=== PATIENT | female | born 1980 | race Caucasian/White ===

== ENCOUNTER 2018-03-14 17:19 | Inpatient (IN) | payer OTHER, MEDICARE ==
[~2018-03-14] VITALS: Ht 162.6 cm; Wt 90.3 kg
[~2018-03-14 17:19] MED LIST: AUGMENTIN 500-1 EACH PO; CALCITRIOL0.25 MC1 PO; CALCITRIOL0.25 MCG PO; CALCITRIOL0.5 MCG PO; CEPHALEXIN250 M2 PO; CIPRO 250MG250 MG PO; CIPRO 500MG (E500 MG PO; COLCHICINE0.6 M2 PO; DICLOFENAC POTA50 M1 PO; FERROUS SULFAT325 M2 PO; IMODIUM2 MG PO; NEXIUM 40MG40 MG PO; NEXIUM40 M1 PO; ORAL ANALGESIC9 GM TP; PERCOCET 325 MG1 TA2 PO; PERCOCET 5-3251 EACH PO; PREDNISONE10 M2 PO; RENVELA800 M1; RENVELA800 M1 PO; RENVELA800 MG PO; SODIUM BICARBO325 M1; SODIUM BICARBO650 M1 PO; VOLTAREN100 GM TOP
--- NOTE | 2018-03-14 17:42 | ED GI/GU/ABDOMINAL COMPLAINT ---
See Addendum History of Present Illness General Chief Complaint: General Adult Stated Complaint: BODY ACHES/NAUSEA Source: patient, old records Exam Limitations: no limitations Allergies Coded Allergies: latex (PRECAUTIONARY INFORMED BY [facility] R/T PT HAVING SPINA BIFADA 03/14/18) Reconcile Medications Calcitriol 0.25 MCG CAPSULE 1 CAP PO DAILY KIDNEYS (Reported) Cephalexin 250 MG CAPSULE 250 MG PO Q8 infection Diclofenac Potassium 50 MG TABLET 1 TAB PO TID PRN PAIN Sevelamer Carbonate (Renvela) 800 MG TABLET 3 TAB PO TID KIDNEYS (Reported) Sodium Bicarbonate 650 MG TABLET 2 TAB PO TID KIDNEYS (Reported) Triage Note: PT TO ED FOR BILATERAL "KIDNEY PAIN" HX OF CHRONIC KIDNEY FAILURE. REPORTS BODY ACHES ALSO, DENIES UTI S/S. Triage Nurses Notes Reviewed? yes ? n Is pt currently ? No Onset: Gradual Duration: hour(s): Timing: single episode today Quality/Severity: moderate Location: left flank Radiation: no radiation HPI: 37yo female with hx of CKD, spina bifida, s/p colostomy and urostomy presents to ED complaining of left sided "flank" pain that started this afternoon. Pt reports that the pain is a dull ache localized to the left upper lateral flank that does not radiate. Pain is constant and does change in intesity with movement. Admits to feeling fatigued, but denies any fevers, chills, chest pain, nausea, shortness of breath. Pt noted that 5 days ago she had an acute episode of nausea and vomiting after eating leftovers. Since then, she has had decreased appetite and fluid intake. She is tolerating PO today however diminished intake compared to her baseline. Pt has urostomy bag and denies any abnormal findings including hematuria, cloudiness,, she states today she has produced urine however slighly less than her usual ammount. Pt denies any recent travel or surgeries. (Luz BURTON,Vee Sepulveda) Vital Signs & Intake/Output Vital Signs & Intake/Output Vital Signs Date Time Temp Pulse Resp B/P B/P Pulse O2 O2 Flow FiO2 Mean Ox Delivery Rate 03/14 1848 119/53 03/14 1723 97.8 95 15 96 Room Air Room Air (Claudette SAGE,Abrahan Hartman) Past History Travel History Traveled to [place] past 21 day No Medical History Any Pertinent Medical History? 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 Refer elsewhere in this and other documents for additional details. There is no other information in these categories that I am aware of and no additional information was provided by the patient on consultation evaluation today which is pertinent to the patient's current orthopaedic consultation assessment, recommendations or care. History of MRSA: Yes History of VRE: No History of CDIFF: No Surgical History Surgical History: RIGHT BELOW KNEE AMPUTATION urostomy, colostomy, Psychosocial History Who do you live with Mother Services at Home None What is your primary language Armenian Tobacco Use: Quit >30 days ago ETOH Use: denies use Illicit Drug Use: denies illicit drug use Family History Family History, If Any: FATHER FH: COPD (chronic obstructive pulmonary disease) FH: stroke Hx Contributory? No (Vee Caceres) Review of Systems Review of Systems Constitutional: Reports: see HPI. EENTM: Reports: no symptoms. Respiratory: Reports: no symptoms. Cardiovascular: Reports: no symptoms. GI: Reports: see HPI. Genitourinary: Reports: see HPI. Musculoskeletal: Reports: no symptoms. Skin: Reports: no symptoms. Neurological/Psychological: Reports: no symptoms. Hematologic/Endocrine: Reports: no symptoms. Immunologic/Allergic: Reports: no symptoms. All Other Systems: Reviewed and Negative (Vee Caceres) Physical Exam Physical Exam General Appearance: well developed/nourished, no apparent distress, alert, awake , obese Head: atraumatic, normal appearance Eyes: Bilateral: normal appearance. Ears, Nose, Throat, Mouth: hearing grossly normal Neck: normal inspection, supple, full range of motion Respiratory: normal breath sounds, chest non-tender, no respiratory distress, lungs clear Cardiovascular: regular rate/rhythm Gastrointestinal: soft, non-tender, urostomy with bag in lower abdomen, colostomy in RLQ, stoma periumbilical Back: normal inspection, normal range of motion, no CVA tenderness, erythematous rash to lower back Neurologic/Psych: no motor/sensory deficits, awake, alert, oriented x 3, normal mood/affect Skin: intact, normal color, warm/dry Core Measures ACS in differential dx? No Sepsis Present: No Sepsis Focused Exam Completed? No (Luz BURTON,Vee eSpulveda) Progress Differential Diagnosis: bowel obstruction, diverticulitis, gastritis, hernia, inflamm bowel dis, kidney stone, UTI/pyelo, acute on chronic renal failure Plan of Care: Orders Procedure Date/time Status Heart Healthy Diet 03/15 B Active Patient Data 03/14 191 Active ED Holding Orders 03/14 1902 Active Admit to inpatient 03/14 190 Active Vital Signs 03/14 190 Active Code Status 03/14 190 Active XRY-PORTABLE CHEST XRAY 03/14 185 Active Add-on Test (ER Only) 03/14 1858 Active ARTERIAL BLOOD GAS (GEN) 03/14 185 Active Add-on Test (ER Only) 03/14 1836 Active EKG 03/14 1815 Active LACTIC ACID 03/14 1755 Active HUMAN BETA HCG SCREEN 03/14 1745 Complete URINE 03/14 1728 Active URINALYSIS 03/14 1728 Active COMPREHENSIVE METABOLIC PANEL 03/14 1728 Complete CBC WITHOUT DIFFERENTIAL 03/[address] ABD & PELVIS W/O IV CONTRAS 03/14 1728 Active Current Medications Sig/Rolo Start time Last Medication Dose Stop Time Status Admin Sodium Bicarbonate 150 MEQ CONTINOUS INFUSION 03/14 1930 UNir (Sodium Bicarbonate 8.4%) Dextrose/Water 1,000 ML (D5W 1000) Sodium Chloride 1,000 ML ONCE ONE 03/14 1845 CAN (Normal Saline 0.9%) 03/15 0244 Laboratory Tests 03/14/18 1745: Anion Gap 19 H, Estimated GFR 4 L, BUN/Creatinine Ratio 7.0, Glucose 96, Calcium 6.5 L, Total Bilirubin 0.4, AST 9 L, ALT 17, Alkaline Phosphatase 176 H, Total Protein 7.5, Albumin 3.5, Globulin 4.0, Albumin/Globulin Ratio 0.9 L, Total Beta HCG NEGATIVE, CBC w Diff NO MAN DIFF REQ, RBC 4.77, MCV 74.2 L, MCH 24.6 L, MCHC 33.1, RDW 16.0 H, MPV 7.3 L, Gran % 68.2, Lymphocytes % 20.7, Monocytes % 8.4, Eosinophils % 2.2, Basophils % 0.5, Absolute Granulocytes 8.6 H, Absolute Lymphocytes 2.6, Absolute Monocytes 1.1 H, Absolute Eosinophils 0.3 , Absolute Basophils 0.1 Patient's labs show creatinine of 11.9, GFR 4. Significant kidney decline compared to her baseline functioning. She also has leukocytosis of 12. Carbon dioxide is 8, ABG pending. CT imaging is pending. This patient requires hospital admission for acute on chronic renal failure asked him is 3.2. EKG is stable. Patient is in no acute distress, she appears comfortable on exam. Her vital signs are stable. Discussed findings with Dr. Wilkins who believes General medicine admission is appropriate. I paged nephrology however am awaiting their return page. Case management recommend full admission. Discussed this patient with Dr. Greenberg, hospitalist, regarding general medicine admission. Initial ED EKG: SINUS RHYTHM @81BPM, NONSPECIFIC ST CHANGES (Luz BURTON,Vee Sepulveda) Departure Departure Disposition: STILL A PATIENT Condition: Stable Clinical Impression Primary Impression: Flank pain Referrals: Jordan Vidales DO (PCP/Family) Additional Instructions: Follow up with your specialist regarding your flank pain. Return with worsening symptoms or concerns. Please note that there might be incidental findings in your evaluation that are unrelated to the current emergency department visit. Please notify your primary care doctor about this emergency department visit in order to obtain and review all of the testing performed so that these incidental findings can be monitored as needed. If you had an x-ray performed, please understand that some fractures may not be seen on the initial set of x-rays. If your symptoms persist you might need a repeat set of x-rays to check for such a fracture. If you had a laceration evaluated, please understand that foreign bodies such as glass or wood may not be visible to the naked eye or on plain x-rays. If the wound becomes red, swollen, increasingly more painful or if there is any drainage from the wound, please have it reevaluated by a physician for the possibility of a retained foreign body. If you're unable to follow up as outlined in the discharge instructions please return to the emergency department. Thank you for choosing the [facility] Emergency Department for your care. It was a pleasure to serve you today. Departure Forms: Customer Survey General Discharge Information Admission Note Spoke With: Vance Greenberg MD Documentation of Exam: Documentation of any treatments & extenuating circumstances including Concerns Regarding Discharge (functional status, medication knowledge or non-compliance, living conditions, etc.) that warrant an admission rather than observation: [ Acute renal failure with electrolyte abnormalities requiring nephrology consult, electrolyte replacement, possible IV fluids, possible dialysis, repeat labs, premature discharge medically unsafe] (Luz BURTON,Vee Sepulveda) PA/UNDERGROUND MINE MACHINERY MECHANIC Co-Sign Statement Statement: ED Attending supervision documentation- [X] I saw and evaluated the patient. I have also reviewed all the pertinent lab results and diagnostic results. I agree with the findings and the plan of care as documented in the PA's/UNDERGROUND MINE MACHINERY MECHANIC's documentation. [X] I have reviewed the ED Record and agree with the PA's/UNDERGROUND MINE MACHINERY MECHANIC's documentation. [] Additions or exceptions (if any) to the PAs/UNDERGROUND MINE MACHINERY MECHANIC's note and plan are summarized below: [Patient to be admitted for acute on chronic kidney failure, patient will need IV fluids, renal consultation, potential dialysis. Her potassium is slightly low but her CO2 is exceptionally low and she is getting acidotic.] (Claudette SAGE,Abrahan Hartman) Critical Care Note Critical Care Note Critical Care Time: 30-74 min (Luz BURTON,Vee Sepulveda)
[2018-03-14 17:58] LABS: ABSOLUTE BASOPHIL COUNT 0.1 /CUMM (0.0-0.2); ABSOLUTE EOSINOPHIL COUNT 0.3 /CUMM (0.0-0.7); ABSOLUTE GRANULOCYTE CT 8.6 /CUMM (1.4-6.5); ABSOLUTE LYMPH COUNT 2.6 /CUMM (1.2-3.4); ABSOLUTE MONOCYTE COUNT 1.1 /CUMM (0.10-0.60); BASOPHIL % 0.5 % (0.0-2.0); EOSINOPHIL % 2.2 % (0-5); GRANULOCYTE % 68.2 % (42.2-75.2); HEMATOCRIT 35.4 % (37-47); MEAN CORPUSCULAR HGB 24.6 PG (27.0-31.0); MEAN CORPUSCULAR HGB CONC 33.1 G/DL (33.0-37.0); MEAN CORPUSCULAR VOLUME 74.2 FL (81.0-99.0); MEAN PLATELET VOLUME 7.3 FL (7.4-10.4); PLATELET COUNT 312 /CUMM (130-400); RED BLOOD CELL CT 4.77 /CUMM (4.20-5.40); WHITE BLOOD CELL COUNT 12.5 /CUMM (4.8-10.8)
[2018-03-14] MEDS ORDERED: SENSIPAR60 M1 PO (19:26)
--- NOTE | 2018-03-14 19:28 | RADIOLOGY REPORT ---
EXAMINATION: XR PORTABLE CHEST CLINICAL INFORMATION: Acute kidney injury. Rule out fluid overload. COMPARISON: Chest x-ray 04/08/2016. TECHNIQUE: Portable frontal view of the chest was obtained. FINDINGS: Ventricular shunt catheter versus right IJ venous line projecting over the right neck, unchanged when compared to multiple prior examinations. Stable enlargement of the right heart border. Symmetric lung inflation. Central vascular congestion without overt edema. No pleural effusion and no pneumothorax. No acute osseous findings. IMPRESSION: Central vascular congestion without overt edema. No focal pneumonia. Stable enlargement of the right heart border. Ventricular shunt catheter versus right IJ venous line projecting over the right neck, unchanged when compared to multiple prior examinations.
--- NOTE | 2018-03-14 19:30 | CT SCAN REPORT ---
EXAMINATION: CT ABDOMEN AND PELVIS WITHOUT CONTRAST CLINICAL INFORMATION: Right flank and back pain. Presumptive diagnosis: Kidney stones, pyelonephritis COMPARISON: Ultrasound dated 12/08/[address] dated 11/22/2015 TECHNIQUE: Multidetector volumetric imaging was performed from the superior aspect of the liver through the pubic symphysis. Sagittal and coronal reformatted images were obtained on the technologist's workstation. DLP: 1204 mGy-cm FINDINGS: LUNG BASES: Mild dependent atelectasis vs. pleural parenchymal scarring. No consolidation. LIVER, GALLBLADDER, AND BILIARY TREE: Relative hypoattenuation of the hepatic parenchyma is consistent with steatosis. No focal hepatic lesions are identified. No biliary duct dilatation. A dense 1.5 cm calcified gallstone is present within the gallbladder in addition to a smaller 3 mm calculus in the gallbladder neck. No evidence of cholecystitis. PANCREAS: Unremarkable. SPLEEN: Unremarkable. ADRENAL GLANDS: Unremarkable. KIDNEYS AND URETERS: As seen on prior studies, the right kidney is markedly atrophic. A few nonobstructing calculi are present in the calyces. A linear band of stones in the right distal ureter measures 4 cm in length and is similar in appearance to the prior study. The surrounding ureter is thickened. No right-sided hydroureter. The termination of the right distal ureter at the bladder is not well seen. A large staghorn calculus is present in the lower pole of the left kidney, increased in size from prior. Multiple additional nonobstructing stones are present in the left kidney. No significant hydronephrosis or hydroureter. As seen on image 55/161 of series 601, there is a 1.6 cm calculus in the left distal ureter. This terminates at the urostomy. BLADDER: Not seen GASTROINTESTINAL TRACT: Nondilated bowel gas pattern. A and colostomy is present within the right mid abdominal wall. The distal colon is likely absent. A Bright's pouch is not seen. There is a Joyce's hernia in the ventral abdominal wall in the infraumbilical region at the midline (image 64/88 of series 2). No significant surrounding bowel inflammation. This Joyce's hernia involves a segment of small bowel. This was likely present on the prior study from 11/22/2015. No intraperitoneal free air or free fluid ABDOMINAL WALL: As mentioned above, a urostomy is present in the left lower quadrant and a colostomy is present in the upper quadrant. There is a small fat-containing umbilical hernia. A Joyce's hernia is present in the anterior abdominal wall in the pelvis just left of midline, lateral to surgical sutures. There is absence of the subcutaneous fat over the anterior abdominal wall in the pelvic region inferiorly, potentially due to prior panniculectomy. LYMPH NODES: There are a few prominent retroperitoneal nodes at the level of the renal vasculature including a 1.2 cm portacaval node (short axis) and a 0.9 cm left pararenal/mesenteric node (image 49/88 of series 2). VASCULAR: Unremarkable. PELVIC VISCERA: The uterus, ovaries, and vagina appear surgically absent. Extensive chronic postsurgical changes are evident in the perineal region with absence of the anus and urogenital structures. OSSEOUS STRUCTURES: There is marked right convex scoliosis in the lumbar spine with distortion of the normal pelvic anatomy. 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 Much of the pubic bones and portions of the ischia are absent. No acute fractures are identified. There is a decubitus ulcer overlying the posterior aspect of the right acetabulum extending to the depth of bone. No definitive findings of osteomyelitis, though MRI would be more specific. No fluid collections are identified. The appearance is similar to the prior study from 11/22/2015. IMPRESSION: 1. Large staghorn calculus in the left kidney with multiple additional nonobstructing left renal calculi, and a 1.6 cm calculus in the left distal ureter proximal to the urostomy. No significant hydronephrosis or hydroureter. 2. Nonobstructing right nephrolithiasis with a 4 cm band of calculi in the right distal ureter, similar to prior. The right kidney is markedly atrophic without hydronephrosis. 3. Cholelithiasis without evidence of cholecystitis. 4. A Joyce's hernia in the infraumbilical anterior abdominal wall involving a segment of small bowel, likely also present on the prior study in 2016. No evidence of obstruction or surrounding inflammation. 5. Decubitus ulcer posterior to the right acetabulum/ischium which extends to the depth of bone. This appearance is similar to 2016. No evidence of abscess or convincing evidence of osteomyelitis. 6. Hepatic steatosis.
--- NOTE | 2018-03-14 19:55 | History & Physical ---
General Information and HPI Allergies/Medications Allergies: Coded Allergies: latex (PRECAUTIONARY INFORMED BY [place] R/T PT HAVING SPINA BIFADA 03/14/18) Home Med list Cinacalcet HCl (Sensipar) 60 MG TABLET 1 TAB PO DAILY KIDNEYS (Reported) Sevelamer Carbonate (Renvela) 800 MG TABLET 3 TAB PO TID KIDNEYS (Reported) Sodium Bicarbonate 650 MG TABLET 2 TAB PO TID KIDNEYS (Reported) Past History Travel History Traveled to [place] past 21 day No Medical History Neurological: Spina bifida with a COMMISSIONS ANALYST shunt EENT: NONE Cardiovascular: NONE Respiratory: NONE Gastrointestinal: ILLEOSTOMY/COLOSTOMY BAG Hepatic: cholelithiasis Renal: chronic kidney disease, nephrolithiasis, UROSTOMY Musculoskeletal: club foot Psychiatric: NONE Endocrine: hyperparathyroidism (secondary) Blood Disorders: NONE Cancer(s): NONE 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 Refer elsewhere in this and other documents for additional details. There is no other information in these categories that I am aware of and no additional information was provided by the patient on consultation evaluation today which is pertinent to the patient's current orthopaedic consultation assessment, recommendations or care. History of MRSA: Yes History of VRE: No History of CDIFF: No Surgical History Surgical History: RIGHT BELOW KNEE AMPUTATION urostomy, colostomy, Past Family/Social History Family History Relations & Conditions if any FATHER FH: COPD (chronic obstructive pulmonary disease) FH: stroke Psychosocial History Who Do You Live With? parent Services at Home: None Primary Language: German ETOH Use: denies use Illicit Drug Use: denies illicit drug use Functional Ability ADLs Independent: dressing, eating, toileting, bathing. Ambulation: electric wheelchair IADLs Independent: shopping, housework, finances, food prep, telephone, transportation , medication admin. Core Measures/Misc (04/09) Sepsis (View protocol) If YES complete Sepsis Event Note If YES complete Sepsis Event Note
--- NOTE | 2018-03-14 20:14 | History & Physical ---
Jim Walsh 03/14/18 2011: General Information and HPI MD Statement: I have seen and personally examined OLIVIA LOCK and documented this H&P. The patient is a 37 year old F who presented with a patient stated chief complaint of FLANK PAIN. Source of Information: patient, old records Exam Limitations: no limitations History of Present Illness: 37 year old female past medical hx of spina bifida, status post colostomy and urostomy, and CKD presents with flu-like symptoms with body aches, left "flank" pain, and loss of appetite for the past five days. The pain started with just the body aches, which were worse than her usual arthralgias, and mild loss of appetite. Today, she started to experience the left-sided flank pain, and presented to the ED. The pain in constant, 5/10 dull ache that does not radiate. Denies fevers, chills, SOB, chest pain, nausea, or urostomy and colostomy changes except possible decreased volume. In the ED, the patient was found to have a creatinine of 11.9 up from her baseline of ~4, calcium of 6.5, and a potassium of 3.2, as well as a leukocytosis of 12.5. Her EKG showed normal sinus rhythm. A CT of her abdomen/ pelvis showed a large staghorn calculus on the left, and a band of nonobstructing calculi on the right. The patient is being admitted to general medicine for management of her electrolyte imbalances due to acute on chronic renal disease. Allergies/Medications Allergies: Coded Allergies: latex (PRECAUTIONARY INFORMED BY [place] R/T PT HAVING SUMIT MOURA 03/14/18) Home Med list Cinacalcet HCl (Sensipar) 60 MG TABLET 1 TAB PO DAILY KIDNEYS (Reported) Sevelamer Carbonate (Renvela) 800 MG TABLET 3 TAB PO TID KIDNEYS (Reported) Sodium Bicarbonate 650 MG TABLET 2 TAB PO TID KIDNEYS (Reported) Compliance With Home Meds: GOOD Past History Travel History Traveled to [place] past 21 day No Medical History Neurological: Spina bifida with a ORGAN ASSEMBLER shunt EENT: NONE Cardiovascular: NONE Respiratory: NONE Gastrointestinal: ILLEOSTOMY/COLOSTOMY BAG Hepatic: cholelithiasis Renal: chronic kidney disease, nephrolithiasis, UROSTOMY Musculoskeletal: club foot Psychiatric: NONE Endocrine: hyperparathyroidism (secondary) Blood Disorders: NONE Cancer(s): NONE 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 Refer elsewhere in this and other documents for additional details. There is no other information in these categories that I am aware of and no additional information was provided by the patient on consultation evaluation today which is pertinent to the patient's current orthopaedic consultation assessment, recommendations or care. History of MRSA: Yes History of VRE: No History of CDIFF: No Surgical History Surgical History: RIGHT BELOW KNEE AMPUTATION urostomy, colostomy, Past Family/Social History Family History Relations & Conditions if any FATHER FH: COPD (chronic obstructive pulmonary disease) FH: stroke Psychosocial History Where do you live? Home Who Do You Live With? parent Services at Home: None Primary Language: Northern Irish Smoking Status: Former Smoker ETOH Use: denies use Illicit Drug Use: denies illicit drug use Functional Ability ADLs Independent: dressing, eating, toileting, bathing. Ambulation: electric wheelchair IADLs Independent: shopping, housework, finances, food prep, telephone, transportation , medication admin. Review of Systems Review of Systems Constitutional: Reports: see HPI, malaise. Denies: chills, fever. EENTM: Reports: no symptoms. Cardiovascular: Denies: chest pain, edema. Respiratory: Denies: cough, short of breath, wheezing. GI: Reports: abdominal pain (5/10 left flank dull ache). Genitourinary: Reports: no symptoms (slight decrease). Musculoskeletal: Reports: muscle pain (generalized). Skin: Reports: see HPI. Neurological/Psychological: Reports: no symptoms. Hematologic/Endocrine: Reports: no symptoms. Immunologic/Allergic: Reports: no symptoms. All Other Systems: Reviewed and Negative Exam & Diagnostic Data Last 24 Hrs of Vital Signs/I&O Vital Signs Date Time Temp Pulse Resp B/P B/P Pulse O2 O2 Flow FiO2 Mean Ox Delivery Rate 03/14 1848 119/53 03/14 1723 97.8 95 15 96 Room Air Room Air Physical Exam General Appearance Alert, Oriented X3, Cooperative, No Acute Distress Skin No Rashes, R decubitus ulcer on hip/posterior thigh Skin Temp/Moisture Exam: Warm/Dry HEENT Atraumatic, PERRLA, EOMI, Mucous Membr. moist/pink Neck Supple, No JVD Cardiovascular Regular Rate, Normal S1, Normal S2, No Murmurs, Gallops, Rubs Lungs Clear to Auscultation, Normal Air Movement Abdomen Soft, No Tenderness, ileostomy and urostomy present Neurological Normal Speech, Strength at 5/5 X4 Ext (x3 EXt; R BKA), Normal Tone, Sensation Intact Extremities No Cyanosis, No Edema, Clubbing on L foot; R BKA Last 24 Hrs of Labs/Woody: Laboratory Tests 03/14/181948: Lactic Acid 1.0 03/14/181930: Bicarbonate Actual 9.3 L, Mixed VBG pH 7.13 L, Mixed VBG pCO2 29 L, Mixed VBG O2 Saturation 53 H, Carboxyhemoglobin 0.7 L, O2 Concentration % RA, Phlebotomy Draw Site R 03/14/18 1745: Anion Gap 19 H, Estimated GFR 4 L, BUN/Creatinine Ratio 7.0, Glucose 96, Serum Osmolality 299 H, Calcium 6.5 L, Total Bilirubin 0.4, AST 9 L, ALT 17, Alkaline Phosphatase 176 H, Total Protein 7.5, Albumin 3.5, Globulin 4.0, Albumin/Globulin Ratio 0.9 L, Total Beta HCG NEGATIVE, CBC w Diff NO MAN DIFF REQ, RBC 4.77, MCV 74.2 L, MCH 24.6 L, MCHC 33.1, RDW 16.0 H, MPV 7.3 L, Gran % 68.2, Lymphocytes % 20.7, Monocytes % 8.4, Eosinophils % 2.2, Basophils % 0.5, Absolute Granulocytes 8.6 H, Absolute Lymphocytes 2.6, Absolute Monocytes 1.1 H, Absolute Eosinophils 0.3, Absolute Basophils 0.1 Microbiology 03/14 1728 URINE ROUT: Urine Culture - ORD Diagnostic Data EKG Results NSR 81bpm, nonspecific T-wave changes CXR Results IMPRESSION: Central vascular congestion without overt edema. No focal pneumonia. Stable enlargement of the right heart border. Ventricular shunt catheter versus right IJ venous line projecting over the right neck, unchanged when compared to multiple prior examinations. Assessment/Plan Assessment: 37 year old female past medical hx of spina bifida, status post colostomy and urostomy, and CKD presents with flu-like symptoms with body aches, left "flank" pain, and loss of appetite for the past five days. In the ED, the patient was found to have a creatinine of 11.9 up from her baseline of ~4, calcium of 6.5 and a potassium of 3.2, as well as a leukocytosis of 12.5. A CT of her abdomen/ pelvis showed a large staghorn calculus on the left, and a band of nonobstructing calculi on the right. Problem list/plan: Acute on chronic kidney injury -follow up urine culture and UA -Consult urology for management of stones and kidney function; patient sees Dr. Nance -Nephrology consult; patient sees Dr. Granados -Manage associated acidosis with sodium bicarbonate drip 3 amp in D5W at 150cc/ hr -Continue home meds Na bicarb tab, sevelamer, and cinacalcet Decubitus ulcer -daily wound dressing w/ Xeroderm -consider mri for possible osteo DVT prophylaxis: Subcu heparin, ALPS Regular diet w/ low potassium, low phosphorus Patient is full code As Ranked By This Provider Problem List: 1. Flank pain 2. CKD (chronic kidney disease) stage 4, GFR 15-29 ml/min 3. Acute kidney injury Core Measures/Misc (04/09) Acute Coronary Syndrome ACS Diagnosis: No Congestive Heart Failure Congestive Heart Failure Diagnosis No Cerebrovascular Accident CVA/TIA Diagnosis: No VTE (View Protocol) VTE Risk Factors Immobility No Mechanical VTE Prophylaxis d/t N/A MechProphylax Ordered No VTE Pharm Prophylaxis d/t NA PharmProphylax ordered Sepsis (View protocol) Sepsis Present: No If YES complete Sepsis Event Note If YES complete Sepsis Event Note Mark Love MD 03/14/182023: Exam & Diagnostic Data Last 24 Hrs of Vital Signs/I&O Vital Signs Date Time Temp Pulse Resp B/P B/P Pulse O2 O2 Flow FiO2 Mean Ox Delivery Rate 03/14 1848 119/53 03/14 1723 97.8 95 15 96 Room Air Room Air Last 24 Hrs of Labs/Woody: Laboratory Tests 03/14/181948: Lactic Acid Pending 03/14/181930: Bicarbonate Actual 9.3 L, Mixed VBG pH 7.13 L, Mixed VBG pCO2 29 L, Mixed VBG O2 Saturation 53 H, Carboxyhemoglobin 0.7 L, O2 Concentration % RA, Phlebotomy Draw Site R 03/14/18 1745: Anion Gap 19 H, Estimated GFR 4 L, BUN/Creatinine Ratio 7.0, Glucose 96, Calcium 6.5 L, Total Bilirubin 0.4, AST 9 L, ALT 17, Alkaline Phosphatase 176 H, Total Protein 7.5, Albumin 3.5, Globulin 4.0, Albumin/Globulin Ratio 0.9 L, Total Beta HCG NEGATIVE, CBC w Diff NO MAN DIFF REQ, RBC 4.77, MCV 74.2 L, MCH 24.6 L, MCHC 33.1, RDW 16.0 H, MPV 7.3 L, Gran % 68.2, Lymphocytes % 20.7, Monocytes % 8.4, Eosinophils % 2.2, Basophils % 0.5, Absolute Granulocytes 8.6 H, Absolute Lymphocytes 2.6, Absolute Monocytes 1.1 H, Absolute Eosinophils 0.3 , Absolute Basophils 0.1 Microbiology 03/14 1728 URINE ROUT: Urine Culture - ORD Diagnostic Data CXR Results IMPRESSION: Central vascular congestion without overt edema. No focal pneumonia. Stable enlargement of the right heart border. Ventricular shunt catheter versus right IJ venous line projecting over the right neck, unchanged when compared to multiple prior examinations. Core Measures/Misc (04/09) Sepsis (View protocol) If YES complete Sepsis Event Note If YES complete Sepsis Event Note Resident Review Statement Resident Statement: examined this patient, discussed with international coordinator, agreed with international coordinator, reviewed EMR data (avail) Other Findings: 37 year old female with spina bifida s/p colostomy, ileostomy, ileal conduit, craniotomy s/p ORGAN ASSEMBLER shunt, R BKA for chronic foot infections, CKD Stage IV/V s/p failed LUE AVF, chronic metabolic acidosis, atrophic right kidney, recurrent nephrolithiasis s/p lithotripsies, h/o struvite stones and right staghorn in the past, anemia of chronic disease, and decubitus ulcers who presents with complaints of poor oral intake, worsening myalgias for five days, and one day of left flank pain prompting evaluation. Labs notable for leukocytosis of 12.5 hemoglobin 11.7, sodium 128, potassium 3.2, chloride 101, bicarbonate 8, anion gap 19, calcium 6.5, albumin 3.5, BUN 83, creatinine 11.9, venous pH 7.13. CT imaging showed a large staghorn calculus in the left kidney with multiple additional nonobstructing left renal calculi, and a 1.6 cm calculus in the left distal ureter proximal to the urostomy. No significant hydronephrosis or hydroureter. Nonobstructing right nephrolithiasis with a 4 cm band of calculi in the right distal ureter. The right kidney is markedly atrophic without hydronephrosis. Cholelithiasis without cholecystitis. Hepatosteatosis. Decubitus ulcer posterior to the right acetabulum/ischium which extends to the depth of bone. This appearance is similar to 2016. No evidence of abscess or convincing evidence of osteomyelitis. She was admitted to general medicine with acute kidney injury on chronic kidney disease and elevated anion gap metabolic acidosis. PE: NAD, distant heart sounds, no audible murmurs, normal peripheral pulses, lungs CTA, no wheezing or crackles, abd soft nt/nd, bs+, no CVA tenderness, R BKA, LLE club foot, nonpitting edema, large R ischial deep decubitus ulcer with dressings partially saturated with serous drainage and multiple small ulcerations, no necrotic tissue Acute kidney injury on chronic kidney disease: BUN 83, Creatinine 11.9, baseline 3-4 likely secondary to complications of stone, no significant changes in urine output Follow up urine culture, although ileal conduit may confound results No evidence of hydronephrosis on CT and atrophic right kidney Nephrology consultation Will repeat renal function after hydration with fluids + bicarbonate Left staghorn calculus Follow up urinalysis and culture Ceftriaxone 1g IV and Vancomycin 1g IV x 1 dose each Urology consultation for possible stent placement and ESWL Anion gap metabolic acidosis D5W with 150 meq bicarbonate x 1L Follow up repeat chemistries Continue oral bicarbonate supplementation Hyponatremia: Serum sodium 128, serum osmolarity mildly elevated Trend chemistries with 1L 150meq bicarbonate to avoid rapid correction Hyperphosphatemia: Continue sevalamer 2400mg PO TID Hypocalcemia: Hold sensipar Repeat calcium tomorrow Chronic metabolic acidosis: Continue sodium bicarbonate oral supplementation Decubitus ulcer: Wound care consultation Daily dressing changes with Xeroform Consider MRI for osteomyelitis Regular diet with 2g K restriction. 1g Ph restriction DVT ppx-heparin sc Full code Vance Greenberg MD 03/14/18 2241: Core Measures/Misc (04/09) Sepsis (View protocol) If YES complete Sepsis Event Note If YES complete Sepsis Event Note Attending MD Review Statement Attending Statement Attending MD Statement: examined this patient, discuss w/resident/PA/CODING DIRECTOR, agreed w/resident/PA/CODING DIRECTOR Attending Assessment/Plan: Patient is seen and examined independently by me. Care plan discussed with medical editor and/or resident. I agree with the physical exam findings and plan of care as outlined above with the following changes and additions. 37 yo F with history of spina bifida s/p ORGAN ASSEMBLER shunt, s/p ileostomy s/p urostomy, recurrent UTI, nephrolithiasis, cholelithiasis, CKD stage IV, right BKA, presented with non radiating left flank pain started this afternoon. She has fatigue, and poor appetite for about 5 days. She also has intermittent nausea and vomiting once 5 days ago. She denies fever or chills. On exam, lungs clear bilaterally. Abdomen: bowel sound present, soft, obese, NTND. Right ileostomy, left urostomy and left stoma sites intact and has no signs of infection/discharge. No CV tenderness. Ext: right BKA, left club foot. Right buttock and upper thigh multiple decub ulcer with xeroform dressing intact. In the ED, WBC 12.5. Lactic acid 1.0. Na 128, K 3.2, CO2 8, AG 19. BUN/Cr 82/11.9 (30/4.7 on 11/27/17). CT abdomen and pelvis shows gallstones with no cholecysitis. Old right atrophic kidney with non obstructing stones and 4 cm band of calculi in the right distal ureter (similar to prior study). Increase large staghorn calculus in sized in the lower pole of the left kidney with non obstructing left renal stones and 1.6 cm calculus in the left distal ureter. No hydronephrosis. No bowel inflammation. Right acetabulum/ischium decub ulcer extending to the depth of bone but no evidence of osteomyelitis. EKG shows NSR at 81 with inverted T in lateral leads and no U waves. Patient got NS 1 L IV in the ED. Patient is admitted to [facility] for GALI, high anion gap metabolic acidosis, staghorn stone, UTI. Check UA/UC/BC. Check urine eosinophil. Start ceftriaxone. Give vanco 1 g IV x1. Start bicarb drip. Give KCL 20 mEQ PO x1. Monitor Chem & I/O. Renal consult. Urology consult for staghorn stone. Wound consult. Vance Greenberg MD FACP
[2018-03-14 22:39] VITALS: BP 110/62
[2018-03-15 06:09] VITALS: BP 100/60
--- NOTE | 2018-03-15 06:57 | PN- Housestaff ---
Paulie Workman 03/15/18 0653: Subjective Follow-up For: GALI on CKD, Left staghorn calculus,metabolic acidosis, HypoNa, HyperPhos, Hypokalemia,Hypomagnesemia, Decubitus ulcer Subjective: Patient seen and examined at bedside. She is complaining of mild pain in left flank area. She denies fever, chills, abdominal pain, chest pain, palpitation, diarrhea, constipation. Review of Systems Constitutional: Reports: see HPI. Objective Last 24 Hrs of Vital Signs/I&O Vital Signs Date Time Temp Pulse Resp B/P B/P Pulse O2 O2 Flow FiO2 Mean Ox Delivery Rate 03/15 0609 98.6 87 22 100/60 96 Room Air 03/14 2239 97.7 78 18 110/62 98 Room Air 03/14 2128 98.4 70 16 108/58 96 Room Air 03/14 1848 119/53 03/14 1723 97.8 95 15 96 Room Air Room Air Intake & Output 03/15 1600 03/15 0800 03/15 0000 Intake Total 1110 Output Total 350 100 Balance 760 -100 Intake, IV 750 Intake, Oral 360 Number 1 Bowel Movements Output, Stool 50 Output, Urine 300 100 Patient 199 lb 200 lb Weight Weight Bed scale Measurement Method Physical Exam General Appearance: Alert, Oriented X3, Cooperative, No Acute Distress Assessment/Plan Assessment: 37-year-old female with past medical history spinal bipedal(status post colostomy, urostomy), craniotomy status post ventriculoperitoneal shunt, right lower extremity below-knee amputations stump, CKD stage V status post failed left upper extremity artery ventricular fistula, recurrent nephrolithiasis status post lithotripsies, right kidney atrophy, chronic metabolic acidosis, history of struvite stone and staghorn stone in the left kidney, anemia of chronic disease, decubitus ulcer presented emergency department with decreased appetite, myalgias and left flank pain for the last 5 days. Her labs were significant at the time presentation emergency department with a leukocytosis of 12.5 mg, H&H 11.7/34, sodium 128, potassium 3.3, chloride 101, bicarbonate, anion gap 19, calcium 6.5, albumin 3.5, bun 83, creatinine 11.9, venous pH 7.13. CT imaging showed a large staghorn calculus in the left kidney with multiple additional nonobstructing left renal calculi and 1. 6 cm calculus in the left distal ureter proximity to urostomy without hydronephrosis or hydroureter, nonobstructing right nephrolithiasis 4 centimeter band of calculi in the right distal ureter. Right kidney atrophy without hydronephrosis, cholelithiasis without cholecystitis. Hepato-steatosis, decubitus ulcer posterior to the right acetabulum/ischium which extends to the depth of the bone. Acute kidney injury on chronic kidney disease; -The patient recent derange renal function test reflect that she is having acute kidney injury. -She also having multiple kidney stones especially stag horn in the left kidney as well as renal system defect can lead to recurrent acute kidney injury. -Patient having chronic metabolic acidosis, hypokalemia, hyperphosphatemia, hyperchloremia and hyponatremia, chronic low bicarb level, decreased magnesium level Potassium replacement done, potassium level is normal . ECG done. There was no U waves, no plating of devious, no ST depression . -She she is on phosphate binders for hyperphosphatemia, -She is on bicarb tablets as well as IV bicarb is given to increase bicarb level. -Magnesium chloride is also given to correct her lower magnesium level. -Normal saline fluid started to correct her hyponatremia due to dehydration. -Her increased clearing level and decrease potassium and sodium level can be correlated with her increased output in ostomy bag. He will follow on her renal function test and basically electrolyte profile every 6 hourly. -If the patient potassium level coming down to 3 will shift the patient to to limit. -Catheter placed in the right internal jugular vein for anticipated dialysis if kidney function got worse Previously left upper extremity AV fistula attempt done but it was unsuccessful -Nephrology review appreciated. -We will follow-up further nephrology recommendation for dialysis Nephrolithiasis: Urology consultation appreciated. Is the patient has right kidney atrophy as well as stage V chronic kidney disease he will not be in position to do surgery for the left kidney staghorn stone. Because the renal function is already compromised she might lose her left kidney on surgical intervention. She was managed conservatively. Will follow with nephrology for the recommendation. There is no sign of hydronephrosis are ureter dilation. Decubitus ulcers; -Wound care consultation placed; -They will take care of the patient while -Changing dressing daily -She has already getting treatment for wound care *Change position every 2 hours *Continue home medication *DVT GI prophylaxis *Healthy diet *Full code - Problem List: 1. Amputated above knee 2. Spina bifida 3. UROSTOMY 4. Ventriculoperitoneal shunt 5. Acute on chronic kidney failure 6. Decubital ulcer 7. Metabolic acidosis 8. Renal failure 9. High anion gap metabolic acidosis 10. Acute kidney injury 11. Full code status 12. 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 She has fatigue, and poor appetite for about 5 days. She also has intermittent nausea and vomiting once 5 days ago. She denies fever or chills. On exam, lungs clear bilaterally. Abdomen: bowel sound present, soft, obese, NTND. Right ileostomy, left urostomy and left stoma sites intact and has no signs of infection/discharge. No CV tenderness. Ext: right BKA, left club foot. Right buttock and upper thigh multiple decub ulcer. labs and imaging noted. EKG non specfic changes Overnight no new complaints. afebrile. Potassium improved. Colostomy output semi formed stools no gas in bag. Patient is admitted to [facility] for 1. GALI on CKD 4 2. high anion gap metabolic acidosis, 3. staghorn stone, 4. Hypokalemia with improvement 5. Decubitus ulcer present on admission 6. spina bifida/urostomy and colostomy. 7. Possible diarrhea c/w ceftriaxone. follow urine cultures PO Bicarb replacement. Monitor frequent Chem & I/O. Renal appreciated, follow renal recs. Obtain IR guided access. Urology consult for staghorn stone. Wound care for decubitis ulcers gi/dvt prophyalxis full code.
[2018-03-15 08:32] LABS: ABSOLUTE BASOPHIL COUNT 0.1 /CUMM (0.0-0.2); ABSOLUTE EOSINOPHIL COUNT 0.2 /CUMM (0.0-0.7); ABSOLUTE GRANULOCYTE CT 7.7 /CUMM (1.4-6.5); ABSOLUTE LYMPH COUNT 1.4 /CUMM (1.2-3.4); ABSOLUTE MONOCYTE COUNT 0.9 /CUMM (0.10-0.60); BASOPHIL % 0.6 % (0.0-2.0); EOSINOPHIL % 1.5 % (0-5); GRANULOCYTE % 75.8 % (42.2-75.2); HEMATOCRIT 33.2 % (37-47); MEAN CORPUSCULAR HGB 24.7 PG (27.0-31.0); MEAN CORPUSCULAR HGB CONC 33.2 G/DL (33.0-37.0); MEAN CORPUSCULAR VOLUME 74.3 FL (81.0-99.0); MEAN PLATELET VOLUME 7.6 FL (7.4-10.4); PLATELET COUNT 306 /CUMM (130-400); RED BLOOD CELL CT 4.47 /CUMM (4.20-5.40); WHITE BLOOD CELL COUNT 10.2 /CUMM (4.8-10.8)
--- NOTE | 2018-03-15 08:40 | Cons- Nephrology ---
General Information and HPI Consulting Request Date of Consult: 03/15/18 Requested By: Vance Greenberg MD Reason for Consult: GALI on CKD History of Present Illness: 37 yo female with spina bifida, advanced ckd with baseline creatinine around 4. She has an ileal conduit as well as colostomy. She has had multiple bouts of GALI from obstruction and volume depletion. Right kidney is atrophic, she has a staghorn calculus in left kidney. She came to the ED yesterday complaing of left lower quadrant pain. She was found to have a creatinine of 11, bicarb on 8. She also had a low serum magnesium and relatively low potassium. CT of abdomen with stone protocol confirmed atrophic right kidney, left sided staghorn , no hydronephrosis on left but a distal left ureteral stone at level of ileal conduit. Patient denies diarrhea althoug she has liquid stool in colostomy. No change in urinary output. She was started on IV bicarb but this was stopped after about 5 hours because of worsening hypokalemia. She has received about 60- 80 meq of po kcl,some IV mag, but there is difficulty repeating labs and giving IV KCl because of IV access problems. Allergies/Medications Allergies: Coded Allergies: latex (PRECAUTIONARY INFORMED BY EARLY R/T PT HAVING SPINA BIFADA 03/14/18) Home Med List: Cinacalcet HCl (Sensipar) 60 MG TABLET 1 TAB PO DAILY KIDNEYS (Reported) Sevelamer Carbonate (Renvela) 800 MG TABLET 3 TAB PO TID KIDNEYS (Reported) Sodium Bicarbonate 650 MG TABLET 2 TAB PO TID KIDNEYS (Reported) Current Medications: Current Medications Sig/Rolo Start time Last Medication Dose Route Stop Time Status Admin Acetaminophen 650 MG Q6P PRN 03/14 2130 AC PO Ceftriaxone Sodium 0 .STK-MED ONE 03/14 2150 DC .ROUTE Ceftriaxone Sodium 1,000 MG ONCE ONE 03/14 2130 DC 03/14 IV 03/14 2131 215 Dextrose/Water 1,000 ML .Q10H 03/15 0415 AC 03/15 IV 0436 Heparin Sodium 5,000 UNIT Q8 03/14 2200 AC 03/15 (Porcine) SC 0452 Heparin Sodium 0 .STK-MED ONE 03/14 2150 DC (Porcine) .ROUTE Magnesium Chloride 64 MG TID 03/15 0457 AC 03/15 PO 0604 Magnesium Sulfate 1 GM ONCE ONE 03/15 0745 AC Dextrose/Water 100 ML IV 03/15 1144 Morphine Sulfate 2 MG Q4P PRN 03/14 2230 AC 03/15 IV 0453 Morphine Sulfate 0 .STK-MED ONE 03/14 2049 DC .ROUTE Morphine Sulfate 2 MG ONCE ONE 03/14 2030 DC 03/14 IV 03/14 Potassium Chloride 60 MEQ ONCE ONE 03/15 0330 DC 03/15 PO 03/15 033 0328 Potassium Chloride 60 MEQ ONCE ONE 03/15 0330 CAN PO 03/15 0331 Potassium Chloride 10 MEQ Q1H 03/15 0330 DC 03/15 IV 03/15 0431 0355 Potassium Chloride 0 .STK-MED ONE 03/14 215 DC PO Potassium Chloride 20 MEQ ONCE ONE 03/14 2130 DC 03/14 PO 03/14 2131 215 Sevelamer Carbonate 2,400 MG WM 03/15 08 AC PO Sodium Bicarbonate 1,300 MG TID 03/15 09 AC PO Sodium Bicarbonate 150 MEQ CONTINOUS INFUSION 03/14 1930 DC 03/14 Dextrose/Water 1,000 ML IV 212 Sodium Chloride 1,000 ML ONCE ONE 03/14 1845 CAN IV 03/15 0244 Vancomycin HCl 1,000 MG ONCE ONE 03/14 2130 DC 03/15 Sodium Chloride 250 ML IV 03/14 2229 0100 Review of Systems Review of Systems: Negative except as noted above. 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 Refer elsewhere in this and other documents for additional details. There is no other information in these categories that I am aware of and no additional information was provided by the patient on consultation evaluation today which is pertinent to the patient's current orthopaedic consultation assessment, recommendations or care. Surgical History Surgical History: RIGHT BELOW KNEE AMPUTATION urostomy, colostomy, Family History Relations & Conditions If Any: FATHER FH: COPD (chronic obstructive pulmonary disease) FH: stroke Psychosocial History Where Do You Live? Home Who Do You Live With? parent Services at Home: None Primary Language: Welsh Smoking Status: Former Smoker ETOH Use: denies use Illicit Drug Use: denies illicit drug use Functional Ability ADLs Independent: dressing, eating, toileting, bathing. Ambulation: electric wheelchair IADLs Independent: shopping, housework, finances, food prep, telephone, transportation , medication admin. Exam & Diagnostic Data Vital Signs and I&O Vital Signs Date Time Temp Pulse Resp B/P B/P Pulse O2 O2 Flow FiO2 Mean Ox Delivery Rate 03/15 0609 98.6 87 22 100/60 96 Room Air 03/14 2239 97.7 78 18 110/62 98 Room Air 03/14 2128 98.4 70 16 108/58 96 Room Air 03/14 1848 119/53 03/14 1723 97.8 95 15 96 Room Air Room Air Intake & Output 03/15 1600 03/15 0400 03/14 1600 03/14 0400 03/13 1600 03/13 0400 Intake Total 1110 Output Total 350 100 Balance 760 -100 Intake, IV 750 Intake, Oral 360 Number 1 Bowel Movements Output, Stool 50 Output, Urine 300 100 Patient 200 lb Weight Weight Bed scale Measurement Method Physical Exam: NAD VS as above Eyes: anicteric, PERRLA Neck: no mass or thyromegaly Nodes: negative cervical/inguinal Skin: no rash or induration Lungs: clear P&A CV: no rub or murmur Abd: nontender, no organomegaly, liquid stool in colostomy, cloudy urine in urostomy. Exts Right BKA, no edema Neuro: A&O, CN intact no asterixis Results Pertinent Lab Results: Laboratory Tests 03/15 03/15 03/14 0800 0156 2126 Chemistry Sodium (137 - 145 mmol/L) Pending 135 L Potassium (3.5 - 5.1 mmol/L) Pending 2.4 *L Chloride (98 - 107 mmol/L) Pending 111 H Carbon Dioxide (22 - 30 mmol/L) Pending 11 L Anion Gap (5 - 16) Pending 13 BUN (7 - 17 mg/dL) Pending 70 H Creatinine (0.5 - 1.0 mg/dL) Pending 9.6 *H Estimated GFR (>60 ml/min) 5 L BUN/Creatinine Ratio (7 - 25 %) Pending 7.3 Magnesium (1.6 - 2.3 mg/dL) 0.9 *L Hematology CBC w Diff Pending WBC Pending RBC Pending Hgb Pending Hct Pending MCV Pending MCH Pending MCHC Pending RDW Pending Plt Count Pending MPV Pending Urines Urinalysis LIGHT H Urine Color (YEL,AMB,STR) YEL Urine Clarity (CLEAR) CLDY H Urine pH (5.0 - 8.0) 7.5 Ur Specific Bassett (1.001 - 1.035) 1.020 Urine Protein (NEG,<30 MG/DL) 100 H Urine Ketones (NEG) NEG Urine Nitrite (NEG) NEG Urine Bilirubin (NEG) NEG Urine Urobilinogen (0.1 - 1.0 EU/dl) 0.2 Ur Leukocyte Esterase (NEG) LARGE H Ur Microscopic SEDIMENT EXAMINED Urine RBC (0 - 5 /HPF) 5-10 H Urine WBC (0 - 2 /HPF) PACKD H Ur Epithelial Cells (NONE,FEW) MOD H Urine Bacteria (NEG/NONE) PACKD H Urine Mucus (FEW,NONE) FEW Urine Hemoglobin (NEG) SMALL H Urine Glucose (N MG/DL) NEG Urine Test NEGATIVE 03/149 1931 1745 Blood Gas Bicarbonate Actual (22 - 26 MEQ/L) 9.3 L Mixed VBG pH (7.31 - 7.41 PH) 7.13 L Mixed VBG pCO2 (41 - 51 TORR) 29 L Mixed VBG O2 Saturation (35 - 45 TORR) 53 H Carboxyhemoglobin (1.5 - 5.0 %) 0.7 L O2 Concentration % RA Chemistry Sodium (137 - 145 mmol/L) 128 L Potassium (3.5 - 5.1 mmol/L) 3.2 L Chloride (98 - 107 mmol/L) 101 Carbon Dioxide (22 - 30 mmol/L) 8 *L Anion Gap (5 - 16) 19 H BUN (7 - 17 mg/dL) 83 H Creatinine (0.5 - 1.0 mg/dL) 11.9 *H Estimated GFR (>60 ml/min) 4 L BUN/Creatinine Ratio (7 - 25 %) 7.0 Glucose (65 - 99 mg/dL) 96 Serum Osmolality (285 - 295 MOSM/KG) 299 H Lactic Acid (0.7 - 2.1 mmol/L) 1.0 Calcium (8.4 - 10.2 mg/dL) 6.5 L Phosphorus (2.5 - 4.5 mg/dL) 8.7 H Total Bilirubin (0.2 - 1.3 mg/dL) 0.4 AST (14 - 36 U/L) 9 L ALT (9 - 52 U/L) 17 Alkaline Phosphatase (<127 U/L) 176 H Total Protein (6.3 - 8.2 g/dL) 7.5 Albumin (3.5 - 5.0 g/dL) 3.5 Globulin (1.9 - 4.2 gm/dL) 4.0 Albumin/Globulin Ratio (1.1 - 2.2 %) 0.9 L Total Beta HCG (NEGATIVE) NEGATIVE Hematology CBC w Diff NO MAN DIFF REQ WBC (4.8 - 10.8 /CUMM) 12.5 H RBC (4.20 - 5.40 /CUMM) 4.77 Hgb (12.0 - 16.0 G/DL) 11.7 L Hct (37 - 47 %) 35.4 L MCV (81.0 - 99.0 FL) 74.2 L MCH (27.0 - 31.0 PG) 24.6 L MCHC (33.0 - 37.0 G/DL) 33.1 RDW (11.5 - 14.5 %) 16.0 H Plt Count (130 - 400 /CUMM) 312 MPV (7.4 - 10.4 FL) 7.3 L Gran % (42.2 - 75.2 %) 68.2 Lymphocytes % (20.5 - 51.1 %) 20.7 Monocytes % (1.7 - 9.3 %) 8.4 Eosinophils % (0 - 5 %) 2.2 Basophils % (0.0 - 2.0 %) 0.5 Absolute Granulocytes (1.4 - 6.5 /CUMM) 8.6 H Absolute Lymphocytes (1.2 - 3.4 /CUMM) 2.6 Absolute Monocytes (0.10 - 0.60 /CUMM) 1.1 H Absolute Eosinophils (0.0 - 0.7 /CUMM) 0.3 Absolute Basophils (0.0 - 0.2 /CUMM) 0.1 Miscellaneous Phlebotomy Draw Site R Urines Urine Osmolality (300 - 1000 MOSM/KG) 297 L Ur Random Creatinine (mg/dL) 27.7 Ur Random Sodium (30 - 90 mmol/L) 27 L Ur Random Potassium (mmol/L) 13.3 Fraction Sodium Excret (<1% %) 9.1 H Imaging/Other Studies: CT scan as above Assessment/Plan Assessment/Recommendations Assessment: GALI may be some combination of obstruction and volume depletion. She has had several similar bouts in past although creatinine never this high. She appears to be having more stool loss than she appreciates given severe worsening of acidosis (which originally was mixed anion gap and hyperchloremic) and profound potassium loss. She is also signficantly magnesium depleted. She has responded partially to a small amount of IV fluids, but these stopped to treat hypokalemia. Recommendations: Would have IR place tunneled IJ access as she will need frequent blood draws and further IV fluids. Depending on AM bloods may need more k/mg/bicarb. Would continue volume expansion as creatinine already better. I believe urology is aware of patient but I am uncertain of their plans but obstruction may be playing a role with limited hydronephrosois due to volulme depletion. No urgent dialysis need as patilent asymptomatic and numbers improving. If potassium reamins below 3 should be on register clerk. Will follow.
[2018-03-15 11:13] LABS: PT 14.3 SEC (9.4-12.5)
--- NOTE | 2018-03-15 13:13 | CT SCAN REPORT ---
EXAMINATION: CT CHEST WITHOUT CONTRAST CLINICAL INFORMATION: History of CP shunt, need to assess positioning. COMPARISON: Chest x-ray 03/14/2018. CT scan of the abdomen and pelvis 8 09/22/2017. TECHNIQUE: Multidetector volumetric CT imaging of the chest was done without intravenous contrast. Axial MIP volume rendering provided. Sagittal and coronal reformatted images were obtained. DLP: 903.05 mGy-cm FINDINGS: SIGNAL INTELLIGENCE/ELECTRONIC WARFARE: The heart appears globular, demonstrated on prior imaging. A catheter is noted projected over the right upper lung medially. A lucent centered gallstone is demonstrated. LUNGS: The lungs are well-expanded bilaterally. A wedge-shaped area of opacity in the superior segment of the left lower lobe may be consistent with an area of consolidation. There are linear opacities in the superior segment of the left lower lobe, consistent with atelectasis. Milder changes are seen on the right. There is a 4 mm nodule along the left major fissure in the superior segment of the left lower lobe anteriorly, most consistent with a perifissural lymph node (image 229, series 4). A 2 mm granuloma is seen in the superior aspect of the left upper lobe laterally and posteriorly image 218, series 4). MEDIASTINUM: A partially visualized catheter is noted in the right upper mediastinum with tip at the confluence of the right internal jugular and left brachiocephalic veins. The thyroid gland is unremarkable. The central airways are patent. There is no hilar or mediastinal lymphadenopathy. The esophagus appears normal. The heart disposition and centrally and toward the right, likely from the patient's scoliosis. There is prominent pericardial fat. There is no pericardial effusion. PLEURA: There is no pleural effusion. No pleural mass or thickening. AXILLA: There is no axillary lymphadenopathy. There are no large masses in the chest wall. UPPER ABDOMEN: The right kidney is partially visualized and is markedly atrophic. It has a small calcification. The left kidney is partially visualized. OSSEOUS STRUCTURES: There is a severe scoliosis in the thoracolumbar region, demonstrated on prior imaging. IMPRESSION: 1. There is a partially visualized catheter in the right upper mediastinum, with tip at the confluence of the right internal jugular and left brachiocephalic veins. 2. There is consolidation in the superior segment of the left lower lobe. 3. A 4 mm nodule is noted along the left major fissure, most consistent with a lymph node. 4. The right kidney is markedly atrophic.
[2018-03-15 14:00] VITALS: BP 102/62
--- NOTE | 2018-03-15 14:07 | Event Note ---
Event Note Event Note: Repeat labs with creatinine back up to 10, bicab down to 9. Needs to restart IV bicarb, would put on D5W plus 150 meq/L of NaHCO3 at 100 cc.hr. Continue to watch K and Mg levels. She went to IR and returned with dialysis catheter which cannot be used for IV access. There was apparent miscommunication between mba intern and IR. She may eventually need dialysis so would leave in place. This was discussed in detail with patient, that we wanted a tunneled IV but that now that dialysis catheter was placed we should keep it in as it is very possible she is going to need HD. Still no known time frame about urologic intervention. Cannot place tunneled IV access in right side as has VJ shunt.
--- NOTE | 2018-03-15 15:17 | Cons- Urology ---
General Information and HPI Consulting Request Date of Consult: 03/15/18 Requested By: Emily SAGE,Omar Reason for Consult: LEFT STAGHORN CALCULUS: arf: RIGHT ATROPHIC KIDNEY Source of Information: patient, old records Exam Limitations: no limitations History of Present Illness: 37 YO WITH SPINABIFIDA-POST Y-URETER CONFIGURATION WITH UROSTOMY-FREQUENT HX STONES TXD WITH PCNL VS URETEROSCOPY/STENT. HERE FOR DEHYDRATION AND arf, BUT CLINICALLY STABLE DESPITE LAB VALUES. pT DECLINED ANY STENT/ESWL/STONE SURGERY SHE FEELS GREAT OVERALL. Allergies/Medications Allergies: Coded Allergies: latex (PRECAUTIONARY INFORMED BY [facility]TON R/T PT HAVING SPINA BARBARAADA 03/14/18) Home Med List: Cinacalcet HCl (Sensipar) 60 MG TABLET 1 TAB PO DAILY KIDNEYS (Reported) Sevelamer Carbonate (Renvela) 800 MG TABLET 3 TAB PO TID KIDNEYS (Reported) Sodium Bicarbonate 650 MG TABLET 2 TAB PO TID KIDNEYS (Reported) Current Medications: Current Medications Sig/Rolo Start time Last Medication Dose Route Stop Time Status Admin Acetaminophen 650 MG Q6P PRN 03/14 2130 AC PO Ceftriaxone Sodium 0 .STK-MED ONE 03/14 2150 DC .ROUTE Ceftriaxone Sodium 1,000 MG ONCE ONE 03/14 2130 DC 03/14 IV 03/14 Dextrose/Water 1,000 ML .Q10H 03/15 0415 DC 03/15 IV 0436 Heparin Sodium 0 .STK-MED ONE 03/15 1112 DC (Porcine) IV Heparin Sodium 5,000 UNIT Q8 03/14 2200 AC 03/15 (Porcine) SC 1435 Heparin Sodium 0 .STK-MED ONE 03/14 2150 DC (Porcine) .ROUTE Lidocaine 0 .STK-MED ONE 03/15 1112 DC .ROUTE Lidocaine/Epinephrine 0 .STK-MED ONE 03/15 1112 DC .ROUTE Magnesium Chloride 64 MG TID 03/15 0457 AC 03/15 PO 1432 Magnesium Sulfate 1 GM ONCE ONE 03/15 0745 DC 03/15 Dextrose/Water 100 ML IV 03/15 1144 1030 Morphine Sulfate 2 MG Q4P PRN 03/14 2230 AC 03/15 IV 0854 Morphine Sulfate 0 .STK-MED ONE 03/14 2049 DC .ROUTE Morphine Sulfate 2 MG ONCE ONE 03/14 2030 DC 03/14 IV 03/14 Potassium Chloride 60 MEQ ONCE ONE 03/15 0330 DC 03/15 PO 03/15 0331 0328 Potassium Chloride 60 MEQ ONCE ONE 03/15 0330 CAN PO 03/15 0331 Potassium Chloride 10 MEQ Q1H 03/15 0330 DC 03/15 IV 03/15 0431 0355 Potassium Chloride 0 .STK-MED ONE 03/14 2150 DC PO Potassium Chloride 20 MEQ ONCE ONE 03/14 2130 DC 03/14 PO 03/14 2131 215 Sevelamer Carbonate 2,400 MG WM 03/15 0800 AC 03/15 PO 1432 Sodium Bicarbonate 150 MEQ Q6H 03/15 1430 AC Dextrose/Water 1,000 ML IV 03/15 2029 Sodium Bicarbonate 75 MEQ Q6H 03/15 1415 DC Sodium Chloride 1,000 ML IV 03/15 2014 Sodium Bicarbonate 1,300 MG TID 03/15 0900 DC 03/15 PO 0851 Sodium Bicarbonate 150 MEQ CONTINOUS INFUSION 03/14 1930 DC 03/14 Dextrose/Water 1,000 ML IV 2129 Sodium Chloride 1,000 ML Q10H 03/15 1100 AC 03/15 IV 1435 Sodium Chloride 1,000 ML ONCE ONE 03/14 1845 CAN IV 03/15 0244 Vancomycin HCl 1,000 MG ONCE ONE 03/14 2130 DC 03/15 Sodium Chloride 250 ML IV 03/14 2229 0100 Past History Medical History Neurological: Spina bifida with a DISTRIBUTION SUPERVISOR shunt EENT: NONE Cardiovascular: NONE Respiratory: NONE Gastrointestinal: ILLEOSTOMY/COLOSTOMY BAG Hepatic: cholelithiasis Renal: chronic kidney disease, nephrolithiasis, UROSTOMY Musculoskeletal: club foot Psychiatric: NONE Endocrine: hyperparathyroidism (secondary) Blood Disorders: NONE 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 Refer elsewhere in this and other documents for additional details. There is no other information in these categories that I am aware of and no additional information was provided by the patient on consultation evaluation today which is pertinent to the patient's current orthopaedic consultation assessment, recommendations or care. Surgical History Pertinent Surgical History: RIGHT BELOW KNEE AMPUTATION urostomy, colostomy, Family History Relations & Conditions If Any: FATHER FH: COPD (chronic obstructive pulmonary disease) FH: stroke Psychosocial History Where Do You Live? Home Who Do You Live With? parent Services at Home: None Primary Language: Sami Smoking Status: Former Smoker ETOH Use: denies use Illicit Drug Use: denies illicit drug use Functional Ability ADLs Independent: dressing, eating, toileting, bathing. Ambulation: electric wheelchair IADLs Independent: shopping, housework, finances, food prep, telephone, transportation , medication admin. Review of Systems Review of Systems Constitutional: Reports: see HPI. EENTM: Denies: no symptoms. Cardiovascular: Denies: no symptoms. Respiratory: Denies: no symptoms. GI: Denies: no symptoms. Genitourinary: Denies: no symptoms. Exam & Diagnostic Data Vital Signs and I&O Vital Signs Date Time Temp Pulse Resp B/P B/P Pulse O2 O2 Flow FiO2 Mean Ox Delivery Rate 03/15 0609 98.6 87 22 100/60 96 Room Air 03/14 2239 97.7 78 18 110/62 98 Room Air 03/14 2128 98.4 70 16 108/58 96 Room Air 03/14 1848 119/53 03/14 1723 97.8 95 15 96 Room Air Room Air Intake & Output 03/15 1600 03/15 0800 03/15 0000 03/14 1600 03/14 0800 03/14 0000 Intake Total 1110 Output Total 350 100 Balance 760 -100 Intake, IV 750 Intake, Oral 360 Number 1 Bowel Movements Output, Stool 50 Output, Urine 300 100 Patient 199 lb 200 lb Weight Weight Bed scale Measurement Method Physical Exam General Appearance: obese Head: atraumatic Eyes: Bilateral: normal appearance. Ears, Nose, Throat: normal pharynx Neck: normal inspection Respiratory: normal breath sounds Cardiovascular: regular rate/rhythm Gastrointestinal: normal bowel sounds, soft Back: no vertebral tenderness Neurologic/Psych: no motor/sensory deficits Reproductive: ABNORMALFEMALE Last 24 Hours of Labs: Laboratory Tests 03/15 03/15 03/15 1500 1010 0800 Chemistry Sodium (137 - 145 mmol/L) Pending 129 L Potassium (3.5 - 5.1 mmol/L) Pending 4.3 Chloride (98 - 107 mmol/L) Pending 104 Carbon Dioxide (22 - 30 mmol/L) Pending 9 *L Anion Gap (5 - 16) Pending 16 BUN (7 - 17 mg/dL) Pending 80 H Creatinine (0.5 - 1.0 mg/dL) Pending 10.9 *H Estimated GFR (>60 ml/min) 4 L BUN/Creatinine Ratio (7 - 25 %) Pending 7.3 Serum Osmolality (285 - 295 MOSM/KG) Pending Calcium (8.4 - 10.2 mg/dL) 6.4 L Phosphorus (2.5 - 4.5 mg/dL) 7.3 H Magnesium (1.6 - 2.3 mg/dL) 1.0 L Creatine Kinase (30 - 135 U/L) 24 L Coagulation PT (9.4 - 12.5 SEC) 14.3 H INR (0.90 - 1.19) 1.31 H Hematology CBC w Diff NO MAN DIFF REQ WBC (4.8 - 10.8 /CUMM) 10.2 RBC (4.20 - 5.40 /CUMM) 4.47 Hgb (12.0 - 16.0 G/DL) 11.0 L Hct (37 - 47 %) 33.2 L MCV (81.0 - 99.0 FL) 74.3 L MCH (27.0 - 31.0 PG) 24.7 L MCHC (33.0 - 37.0 G/DL) 33.2 RDW (11.5 - 14.5 %) 16.0 H Plt Count (130 - 400 /CUMM) 306 MPV (7.4 - 10.4 FL) 7.6 Gran % (42.2 - 75.2 %) 75.8 H Lymphocytes % (20.5 - 51.1 %) 13.4 L Monocytes % (1.7 - 9.3 %) 8.7 Eosinophils % (0 - 5 %) 1.5 Basophils % (0.0 - 2.0 %) 0.6 Absolute Granulocytes (1.4 - 6.5 /CUMM) 7.7 H Absolute Lymphocytes (1.2 - 3.4 /CUMM) 1.4 Absolute Monocytes (0.10 - 0.60 /CUMM) 0.9 H Absolute Eosinophils (0.0 - 0.7 /CUMM) 0.2 Absolute Basophils (0.0 - 0.2 /CUMM) 0.1 03/15 03/14 03/14 03/14 0156 2126 2126 1949 Chemistry Sodium (137 - 145 mmol/L) 135 L Potassium (3.5 - 5.1 mmol/L) 2.4 *L Chloride (98 - 107 mmol/L) 111 H Carbon Dioxide (22 - 30 mmol/L) 11 L Anion Gap (5 - 16) 13 BUN (7 - 17 mg/dL) 70 H Creatinine (0.5 - 1.0 mg/dL) 9.6 *H Estimated GFR (>60 ml/min) 5 L BUN/Creatinine Ratio (7 - 25 %) 7.3 Lactic Acid (0.7 - 2.1 mmol/L) 1.0 Magnesium (1.6 - 2.3 mg/dL) 0.9 *L Urines Urinalysis LIGHT H Urine Color (YEL,AMB,STR) YEL Urine Clarity (CLEAR) CLDY H Urine pH (5.0 - 8.0) 7.5 Ur Specific [place] (1.001 - 1.035) 1.020 Urine Protein (NEG,<30 MG/DL) 100 H Urine Ketones (NEG) NEG Urine Nitrite (NEG) NEG Urine Bilirubin (NEG) NEG Urine Urobilinogen (0.1 - 1.0 EU/dl) 0.2 Ur Leukocyte Esterase (NEG) LARGE H Ur Microscopic SEDIMENT EXAMINED Urine RBC (0 - 5 /HPF) 5-10 H Urine WBC (0 - 2 /HPF) PACKD H Ur Epithelial Cells (NONE,FEW) MOD H Urine Bacteria (NEG/NONE) PACKD H Urine Mucus (FEW,NONE) FEW Urine Hemoglobin (NEG) SMALL H Urine Osmolality (300 - 1000 MOSM/KG) 297 L Ur Random Creatinine (mg/dL) 27.7 Ur Random Sodium (30 - 90 mmol/L) 27 L Ur Random Potassium (mmol/L) 13.3 Fraction Sodium Excret (<1% %) 9.1 H Urine Glucose (N MG/DL) NEG Urine Test NEGATIVE 03/14 174 Blood Gas Bicarbonate Actual (22 - 26 MEQ/L) 9.3 L Mixed VBG pH (7.31 - 7.41 PH) 7.13 L Mixed VBG pCO2 (41 - 51 TORR) 29 L Mixed VBG O2 Saturation (35 - 45 TORR) 53 H Carboxyhemoglobin (1.5 - 5.0 %) 0.7 L O2 Concentration % RA Chemistry Sodium (137 - 145 mmol/L) 128 L Potassium (3.5 - 5.1 mmol/L) 3.2 L Chloride (98 - 107 mmol/L) 101 Carbon Dioxide (22 - 30 mmol/L) 8 *L Anion Gap (5 - 16) 19 H BUN (7 - 17 mg/dL) 83 H Creatinine (0.5 - 1.0 mg/dL) 11.9 *H Estimated GFR (>60 ml/min) 4 L BUN/Creatinine Ratio (7 - 25 %) 7.0 Glucose (65 - 99 mg/dL) 96 Serum Osmolality (285 - 295 MOSM/KG) 299 H Calcium (8.4 - 10.2 mg/dL) 6.5 L Phosphorus (2.5 - 4.5 mg/dL) 8.7 H Total Bilirubin (0.2 - 1.3 mg/dL) 0.4 AST (14 - 36 U/L) 9 L ALT (9 - 52 U/L) 17 Alkaline Phosphatase (<127 U/L) 176 H Total Protein (6.3 - 8.2 g/dL) 7.5 Albumin (3.5 - 5.0 g/dL) 3.5 Globulin (1.9 - 4.2 gm/dL) 4.0 Albumin/Globulin Ratio (1.1 - 2.2 %) 0.9 L Total Beta HCG (NEGATIVE) NEGATIVE Hematology CBC w Diff NO MAN DIFF REQ WBC (4.8 - 10.8 /CUMM) 12.5 H RBC (4.20 - 5.40 /CUMM) 4.77 Hgb (12.0 - 16.0 G/DL) 11.7 L Hct (37 - 47 %) 35.4 L MCV (81.0 - 99.0 FL) 74.2 L MCH (27.0 - 31.0 PG) 24.6 L MCHC (33.0 - 37.0 G/DL) 33.1 RDW (11.5 - 14.5 %) 16.0 H Plt Count (130 - 400 /CUMM) 312 MPV (7.4 - 10.4 FL) 7.3 L Gran % (42.2 - 75.2 %) 68.2 Lymphocytes % (20.5 - 51.1 %) 20.7 Monocytes % (1.7 - 9.3 %) 8.4 Eosinophils % (0 - 5 %) 2.2 Basophils % (0.0 - 2.0 %) 0.5 Absolute Granulocytes (1.4 - 6.5 /CUMM) 8.6 H Absolute Lymphocytes (1.2 - 3.4 /CUMM) 2.6 Absolute Monocytes (0.10 - 0.60 /CUMM) 1.1 H Absolute Eosinophils (0.0 - 0.7 /CUMM) 0.3 Absolute Basophils (0.0 - 0.2 /CUMM) 0.1 Miscellaneous Phlebotomy Draw Site R Imaging Results: PATIENT: OLIVIA LOCK PRESENT AGE: 37 PATIENT ACCOUNT NO: [id number] : 81 LOCATION: [facility] ORDERING PHYSICIAN: Reese BURTON SERVICE DATE: 03/14/18 EXAM TYPE: CAT - CT ABD & PELVIS W/O IV CONTRAS EXAMINATION: CT ABDOMEN AND PELVIS WITHOUT CONTRAST CLINICAL INFORMATION: Right flank and back pain. Presumptive diagnosis: Kidney stones, pyelonephritis COMPARISON: Ultrasound dated 12/08/[address] dated 11/22/2015 TECHNIQUE: Multidetector volumetric imaging was performed from the superior aspect of the liver through the pubic symphysis. Sagittal and coronal reformatted images were obtained on the technologist's workstation. DLP: 1204 mGy-cm FINDINGS: LUNG BASES: Mild dependent atelectasis vs. pleural parenchymal scarring. No consolidation. LIVER, GALLBLADDER, AND BILIARY TREE: Relative hypoattenuation of the hepatic parenchyma is consistent with steatosis. No focal hepatic lesions are identified. No biliary duct dilatation. A dense 1.5 cm calcified gallstone is present within the gallbladder in addition to a smaller 3 mm calculus in the gallbladder neck. No evidence of cholecystitis. PANCREAS: Unremarkable. SPLEEN: Unremarkable. ADRENAL GLANDS: Unremarkable. KIDNEYS AND URETERS: As seen on prior studies, the right kidney is markedly atrophic. A few nonobstructing calculi are present in the calyces. A linear band of stones in the right distal ureter measures 4 cm in length and is similar in appearance to the prior study. The surrounding ureter is thickened. No right-sided hydroureter. The termination of the right distal ureter at the bladder is not well seen. A large staghorn calculus is present in the lower pole of the left kidney, increased in size from prior. Multiple additional nonobstructing stones are present in the left kidney. No significant hydronephrosis or hydroureter. As seen on image 55/161 of series 601, there is a 1.6 cm calculus in the left distal ureter. This terminates at the urostomy. BLADDER: Not seen GASTROINTESTINAL TRACT: Nondilated bowel gas pattern. A and colostomy is present within the right mid abdominal wall. The distal colon is likely absent. A Bright's pouch is not seen. There is a Joyce's hernia in the ventral abdominal wall in the infraumbilical region at the midline (image 64/88 of series 2). No significant surrounding bowel inflammation. This Joyce's hernia involves a segment of small bowel. This was likely present on the prior study from 11/22/2015. No intraperitoneal free air or free fluid ABDOMINAL WALL: As mentioned above, a urostomy is present in the left lower quadrant and a colostomy is present in the upper quadrant. There is a small fat-containing umbilical hernia. A Joyce's hernia is present in the anterior abdominal wall in the pelvis just left of midline, lateral to surgical sutures. There is absence of the subcutaneous fat over the anterior abdominal wall in the pelvic region inferiorly, potentially due to prior panniculectomy. LYMPH NODES: There are a few prominent retroperitoneal nodes at the level of the renal vasculature including a 1.2 cm portacaval node (short axis) and a 0.9 cm left pararenal/mesenteric node (image 49/88 of series 2). VASCULAR: Unremarkable. PELVIC VISCERA: The uterus, ovaries, and vagina appear surgically absent. Extensive chronic postsurgical changes are evident in the perineal region with absence of the anus and urogenital structures. OSSEOUS STRUCTURES: There is marked right convex scoliosis in the lumbar spine with distortion of the normal pelvic anatomy. 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 Much of the pubic bones and portions of the ischia are absent. No acute fractures are identified. There is a decubitus ulcer overlying the posterior aspect of the right acetabulum extending to the depth of bone. No definitive findings of osteomyelitis, though MRI would be more specific. No fluid collections are identified. The appearance is similar to the prior study from 11/22/2015. IMPRESSION: 1. Large staghorn calculus in the left kidney with multiple additional nonobstructing left renal calculi, and a 1.6 cm calculus in the left distal ureter proximal to the urostomy. No significant hydronephrosis or hydroureter. 2. Nonobstructing right nephrolithiasis with a 4 cm band of calculi in the right distal ureter, similar to prior. The right kidney is markedly atrophic without hydronephrosis. 3. Cholelithiasis without evidence of cholecystitis. 4. A Joyce's hernia in the infraumbilical anterior abdominal wall involving a segment of small bowel, likely also present on the prior study in 2016. No evidence of obstruction or surrounding inflammation. 5. Decubitus ulcer posterior to the right acetabulum/ischium which extends to the depth of bone. This appearance is similar to 2016. No evidence of abscess or convincing evidence of osteomyelitis. 6. Hepatic steatosis. Assessment/Plan Assessment/Plan LEFT STAGHORN: ARF WORSE/HEMODYALISIS LIKELY SOON::: Consult Acknowledgment - Thank you for your consult request. Attending MD Review Statement Attending Statement Attending MD Statement: examined this patient, discuss w/resident/PA/RISK MANAGEMENT DIRECTOR Attending Assessment/Plan: MONITOR WITH IVF/IVHYDRATION
--- NOTE | 2018-03-15 16:34 | INTERVENTIONAL RADIOLOGY RPT ---
PROCEDURE: ULTRASOUND AND FLUOROSCOPICALLY GUIDED RIGHT INTERNAL JUGULAR VEIN TUNNELED PERMACATHETER PLACEMENT INTERVENTIONAL RADIOLOGIST: Giovanny Calhoun M.D. CLINICAL HISTORY: 37-year-old female with renal failure. Tunneled hemodialysis catheter requested. COMPARISON: Chest x-ray 03/14/2018 MEDICATIONS: -1% lidocaine, 12 mL -Lidocaine with epinephrine, 15 mL FLUOROSCOPY TIME: 52 seconds DOSE AREA PRODUCT: 3.7 mGy-m2 (milligray-meter squared) TECHNIQUE: Informed consent was obtained from the patient prior to the procedure. During this process, the procedure and potential alternatives were explained along with the intended outcome and benefits. The risks of the procedure, including the possibility of an unsuccessful procedure, as well as the risk of not doing the procedure were discussed. The patient was given the opportunity to ask questions regarding the procedure and appeared competent to make medical decisions. A signed consent form which documents this discussion was placed in the medical record. A timeout procedure was performed. Following informed consent the patient was placed supine on the fluoroscopic table. The left neck and chest were prepped and draped in usual sterile fashion. All elements of maximal sterile barrier technique were followed including use of cap, mask, sterile gown, sterile gloves, a sterile full body drape and hand hygiene. The skin was prepared with 2% chlorhexidine for cutaneous antisepsis and sterile ultrasound preparation with sterile gel and probe cover was performed when applicable. Using ultrasound guidance the left internal jugular vein was localized. Ultrasound was utilized to assess the vascular structures for access. A standard puncture into the left internal jugular vein was performed with a Micro-Stick system. Measurements were taken and the wire advanced down the IVC to confirm venous placement. 1% lidocaine with epinephrine was placed along the anterior chest wall tunneling site. A linear incision was made. The 27 cm tip to cuff tunneled hemodialysis catheter was tunneled in the subcutaneous tissues, exiting at the venotomy site. Serial dilatation was performed over the 0.035 inches wire. A peel-away sheath was placed over the wire and the catheter advanced down the peel-away sheath. The peel-away sheath was removed. Fluoroscopic imaging confirmed location of the catheter tip within the right atrium. Dermabond was utilized to close the venotomy site. Silk suture was utilized for catheter securement. The catheter was flushed with heparin split between the 2 lumens for dwell. The patient tolerated the procedure well. The patient was transferred to the recovery room in good condition. ULTRASOUND-GUIDED VASCULAR ACCESS: Ultrasound was used to identify the left internal jugular vein. The left internal jugular vein was confirmed to be patent. Real time imaging confirmed needle access into the left internal jugular vein. An image was saved for permanent recording in PACS. IMPRESSION: Successful placement of 27 cm tip to cuff tunneled hemodialysis catheter using fluoroscopic and ultrasound guidance.
[2018-03-15 22:58] VITALS: BP 100/58
[2018-03-16 06:15] VITALS: BP 98/60
--- NOTE | 2018-03-16 07:26 | PN- Housestaff ---
Paulie Workman 03/16/18 0725: Subjective Follow-up For: GALI, Metabolic acidosis Subjective: Patient seen and examined at bedside. She denies fever, chills, abdominal pain, chest pain, palpitation, diarrhea, constipation, diarrhea. Review of Systems Constitutional: Reports: see HPI. Objective Last 24 Hrs of Vital Signs/I&O Vital Signs Date Time Temp Pulse Resp B/P B/P Pulse O2 O2 Flow FiO2 Mean Ox Delivery Rate 03/16 0615 97.7 98 20 98/60 98 Room Air 03/15 2258 98.7 81 20 100/58 97 Room Air 03/15 1400 97.8 86 18 102/62 96 Room Air Intake & Output 03/16 1600 03/16 0800 03/16 0000 Intake Total 2200 300 Output Total 815 795 Balance 1385 -495 Intake, IV 1200 Intake, Oral 1000 300 Output, Stool 225 145 Output, Urine 590 650 Physical Exam General Appearance: Alert, Oriented X3, Cooperative, No Acute Distress Assessment/Plan Assessment: 37-year-old female with past medical history spinal bipedal(status post colostomy, urostomy), craniotomy status post ventriculoperitoneal shunt, right lower extremity below-knee amputations stump, CKD stage V status post failed left upper extremity artery ventricular fistula, recurrent nephrolithiasis status post lithotripsies, right kidney atrophy, chronic metabolic acidosis, history of struvite stone and staghorn stone in the left kidney, anemia of chronic disease, decubitus ulcer presented emergency department with decreased appetite, myalgias and left flank pain for the last 5 days. Her labs were significant at the time presentation emergency department with a leukocytosis of 12.5 mg, H&H 11.7/34, sodium 128, potassium 3.3, chloride 101, bicarbonate, anion gap 19, calcium 6.5, albumin 3.5, bun 83, creatinine 11.9, venous pH 7.13. CT imaging showed a large staghorn calculus in the left kidney with multiple additional nonobstructing left renal calculi and 1. 6 cm calculus in the left distal ureter proximity to urostomy without hydronephrosis or hydroureter, nonobstructing right nephrolithiasis 4 centimeter band of calculi in the right distal ureter. Right kidney atrophy without hydronephrosis, cholelithiasis without cholecystitis. Hepato-steatosis, decubitus ulcer posterior to the right acetabulum/ischium which extends to the depth of the bone. Acute kidney injury on chronic kidney disease: -The patient recent derange renal function test reflect that she is having acute kidney injury. -She also having multiple kidney stones especially stag horn in the left kidney as well as renal system defect can lead to recurrent acute kidney injury. -Patient having chronic metabolic acidosis, hypokalemia, hyperphosphatemia, hyperchloremia and hyponatremia, chronic low bicarb level, decreased magnesium level Potassium replacement done, potassium level is normal . ECG done. There was no U waves, no plating of devious, no ST depression . -She she is on phosphate binders for hyperphosphatemia, -She is on bicarb tablets as well as IV bicarb is given to increase bicarb level. -Magnesium chloride is also given to correct her lower magnesium level. -Normal saline fluid started to correct her hyponatremia due to dehydration. -Her increased clearing level and decrease potassium and sodium level can be correlated with her increased output in ostomy bag. He will follow on her renal function test and basically electrolyte profile every 6 hourly. -If the patient potassium level coming down to 3 will shift the patient to to limit. Today patient last K level was 3, repletion done, ordered BEP at 7pm, waiting for next BEP and will be followed accordingly. -Nephrology review appreciated. Supervisor Transcribing Operators recommended Dr. Nance to relieve the obstruction due to stone. -We will follow-up further nephrology recommendation for dialysis Nephrolithiasis: Urologist Dr. Nance planing procedure 4 PM today to relieve the stone. We will observe the patient if the kidney function improved then will discharge the patient. If the patient kidney function still derange and had such a high creatinine will go for dialysis. Patient is n.p.o. from now. Dr. Nance wanted a procedure today since 4 PMDecubitus ulcers; -Wound care consultation placed; -They will take care of the patient while -Changing dressing daily -She has already getting treatment for wound care *Change position every 2 hours *Continue home medication *DVT GI prophylaxis *Healthy diet *Full code Problem List: 1. Colostomy 2. Amputated above knee 3. PRESSURE ULCER INFECTION 4. UROSTOMY 5. Acute on chronic kidney failure 6. Decubital ulcer 7. Metabolic acidosis 8. High anion gap metabolic acidosis 9. Renal failure 10. Flank pain 11. Full code status 12. Acute kidney injury Pain Ratin Pain Location: No pain Pain Goal: Remain pain free Pain Plan: Pain management pathway Tomorrow's Labs & Rationales: cbc, BEP Omar Diaz 03/16/18 1116: Attending MD Review Statement Attending Statement Attending MD Statement: examined this patient, discuss w/resident/PA/FOREST MANAGER, agreed w/resident/PA/FOREST MANAGER, discussed with family, reviewed EMR data (avail), discussed with nursing, discussed with case mgmt, reviewed images, amended to note Attending Assessment/Plan: Overnight no new complaints. Had IR guided catheter placement. afebrile. Labs noted. Cr still elevated. ASSESSMENT 1. GALI on CKD 4 2. high anion gap metabolic acidosis with improvement 3. staghorn stone, 4. Hypokalemia with improvement 5. Decubitus ulcer present on admission 6. spina bifida/urostomy and colostomy. 7. Dehydration Discontinue ceftriaxone. follow up urine cultures contaminant Bicarb replacement as per nephrology. Monitor frequent Chem & I/O. Renal closey following, follow renal recs. S/p IR guided access. Dialysis plan as per nephro. Urology aware Dr Nance for staghorn stone. Plan for stent placement today OR. Keep NPO. Wound care for decubitis ulcers gi/dvt prophyalxis full code.
--- NOTE | 2018-03-16 08:51 | PN- Student ---
Subjective Subjective: Patient is a 37 y/o female with a PMH of CKD stage 5, spina bifida, s/p colostomy and urostomy. She presented to the ED with left flank pain associated with body aches and decreased appetite. 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 BUN (83) & Creatinine (11.7) are elevated Hypocalemia (6.5) & hyperphosphatemia (8.7) Hypokalemia (2.4) & hypomagnesemia (0.9) UA positive for LE, WBC, & bacteria Results Results: Laboratory Tests 03/16/18 0714: Sodium Pending, Potassium Pending, Chloride Pending, Carbon Dioxide Pending, Anion Gap Pending, BUN Pending, Creatinine Pending, BUN/Creatinine Ratio Pending , Phosphorus Pending, Magnesium Pending 03/15/18 2145: Anion Gap 16, Estimated GFR 4 L, BUN/Creatinine Ratio 7.5, Calcium 6.8 L, Phosphorus 5.2 H, Magnesium 1.2 L 03/15/18 1600: Sodium Cancelled, Potassium Cancelled, Chloride Cancelled, Carbon Dioxide Cancelled, Anion Gap Cancelled, BUN Cancelled, Creatinine Cancelled, BUN/ Creatinine Ratio Cancelled 03/15/18 1500: Anion Gap 17 H, Estimated GFR 4 L, BUN/Creatinine Ratio 7.3 03/15/18 1010: PT 14.3 H, INR 1.31 H 03/15/18 0800: Anion Gap 16, Estimated GFR 4 L, BUN/Creatinine Ratio 7.3, Serum Osmolality 300 H, Calcium 6.4 L, Phosphorus 7.3 H, Magnesium 1.0 L, Creatine Kinase 24 L, CBC w Diff NO MAN DIFF REQ, RBC 4.47, MCV 74.3 L, MCH 24.7 L, MCHC 33.2, RDW 16.0 H, MPV 7.6, Gran % 75.8 H, Lymphocytes % 13.4 L, Monocytes % 8.7, Eosinophils % 1.5, Basophils % 0.6, Absolute Granulocytes 7.7 H, Absolute Lymphocytes 1.4, Absolute Monocytes 0.9 H, Absolute Eosinophils 0.2, Absolute Basophils 0.1 03/15/18 0156: Anion Gap 13, Estimated GFR 5 L, BUN/Creatinine Ratio 7.3, Magnesium 0.9 *L 03/14/182125: Urinalysis LIGHT H, Urine Color YEL, Urine Clarity CLDY H, Urine pH 7.5, Ur Specific [place] 1.020, Urine Protein 100 H, Urine Ketones NEG, Urine Nitrite NEG, Urine Bilirubin NEG, Urine Urobilinogen 0.2, Ur Leukocyte Esterase LARGE H , Ur Microscopic SEDIMENT EXAMINED, Urine RBC 5-10 H, Urine WBC PACKD H, Ur Epithelial Cells MOD H, Urine Bacteria PACKD H, Urine Mucus FEW, Urine Hemoglobin SMALL H, Urine Glucose NEG, Urine Test NEGATIVE 03/14/182125: Urine Osmolality 297 L, Ur Random Creatinine 27.7, Ur Random Sodium 27 L, Ur Random Potassium 13.3, Fraction Sodium Excret 9.1 H 03/14/181948: Lactic Acid 1.0 03/14/18 193: Bicarbonate Actual 9.3 L, Mixed VBG pH 7.13 L, Mixed VBG pCO2 29 L, Mixed VBG O2 Saturation 53 H, Carboxyhemoglobin 0.7 L, O2 Concentration % RA, Phlebotomy Draw Site R 03/14/18 1745: Anion Gap 19 H, Estimated GFR 4 L, BUN/Creatinine Ratio 7.0, Glucose 96, Serum Osmolality 299 H, Calcium 6.5 L, Phosphorus 8.7 H, Total Bilirubin 0.4, AST 9 L, ALT 17, Alkaline Phosphatase 176 H, Total Protein 7.5, Albumin 3.5, Globulin 4.0, Albumin/Globulin Ratio 0.9 L, Total Beta HCG NEGATIVE, CBC w Diff NO MAN DIFF REQ, RBC 4.77, MCV 74.2 L, MCH 24.6 L, MCHC 33.1, RDW 16.0 H, MPV 7.3 L, Gran % 68.2, Lymphocytes % 20.7, Monocytes % 8.4, Eosinophils % 2.2, Basophils % 0.5, Absolute Granulocytes 8.6 H, Absolute Lymphocytes 2.6, Absolute Monocytes 1.1 H, Absolute Eosinophils 0.3, Absolute Basophils 0.1 Microbiology 03/14 2126 URINE ROUT: Urine Culture - COMP Assessment/Plan Assessment: Patient is a 37 y/o female with a PMH of CKD stage 5, spina bifida, s/p colostomy and urostomy. She presented to the ED with left flank pain associated with body aches and decreased appetite. Plan: BUN (83) & Creatinine (11.7) are elevated * GALI, patient was hydrated with fluids and bicarb (chronic metabolic acidosis) Hyperphosphatemia (8.7) * sevalamer TID 2400mg Hypomagnesemia (0.9) * Mag sulfate 1g IV UA positive for LE, WBC, & bacteria * 1 dose of Ceftriaxone (1g) and Vancomycin (1g)
--- NOTE | 2018-03-16 10:38 | PN- Nephrology ---
Assessment/Plan Nephrology Assessment: Little improvement in creatinine, acidosis better with IV bicarb. Suggestion: Spoke with patient and Dr. Nance, plan for ureteral stent. If still no improvment in GFR over weekend will probably need to start dialysis. Subjective Subjective: Patient feeling better, less abdominal pain. Objective Vital Signs and I&Os Vital Signs Date Time Temp Pulse Resp B/P B/P Pulse O2 O2 Flow FiO2 Mean Ox Delivery Rate 03/16 0615 97.7 98 20 98/60 98 Room Air 03/15 2258 98.7 81 20 100/58 97 Room Air 03/15 1400 97.8 86 18 102/62 96 Room Air Intake & Output 03/16 1600 03/16 0400 03/15 1600 03/15 0400 03/14 1600 03/14 0400 Intake Total 2200 300 1955 Output Total 525 1085 750 100 Balance 1675 -785 1205 -100 Intake, IV 1200 1195 Intake, Oral 1000 300 760 Number 1 Bowel Movements Output, Stool 225 145 200 Output, Urine 300 940 550 100 Patient 199 lb 200 lb Weight Weight Bed scale Measurement Method Physical Exam: NAD VS as above Lung: clear CV: no rub Abd: nontender Exts: no edema Neuro: A&O Current Medications: Current Medications Sig/Rolo Start time Last Medication Dose Route Stop Time Status Admin Acetaminophen 650 MG Q6P PRN 03/14 2130 AC PO Heparin Sodium 0 .STK-MED ONE 03/15 111 DC (Porcine) IV Heparin Sodium 5,000 UNIT Q8 03/14 2200 AC 03/16 (Porcine) SC 0519 Hydromorphone HCl 1 MG Q4P PRN 03/15 1745 AC 03/16 IV 0519 Hydroxyzine HCl 25 MG TID PRN 03/16 1030 UNVr PO Lidocaine 0 .STK-MED ONE 03/15 1112 DC .ROUTE Lidocaine/Epinephrine 0 .STK-MED ONE 03/15 111 DC .ROUTE Magnesium Chloride 64 MG ONCE ONE 03/15 2245 DC 03/15 PO 03/15 2246 2350 Magnesium Chloride 64 MG TID 03/15 0457 AC 03/16 PO 0911 Magnesium Sulfate 1 GM ONCE ONE 03/15 0745 DC 03/15 Dextrose/Water 100 ML IV 03/15 1144 1030 Morphine Sulfate 2 MG Q4P PRN 03/14 2230 DC 03/15 IV 1526 Nystatin 1 JAYSON TID 03/15 2145 AC 03/16 TOP 0912 Patient Medication 1 ED ONE ONE 03/15 1815 DC 03/15 Teaching ED 03/15 181 1856 Potassium Chloride 40 MEQ ONCE ONE 03/16 0915 DC PO 03/16 0916 Potassium Chloride 40 MEQ ONCE ONE 03/15 2245 DC 03/15 PO 03/15 2246 2350 Ramelteon 0 .STK-MED ONE 03/15 2010 DC PO Sevelamer Carbonate 2,400 MG WM 03/15 0800 AC 03/16 PO 0912 Sodium Bicarbonate 100 MEQ Q6H 03/16 1045 UNVr Dextrose/Water 1,000 ML IV 03/16 1644 Sodium Bicarbonate 150 MEQ Q6H 03/16 0130 DC 03/16 Dextrose/Water 1,000 ML IV 03/16 1329 0129 Sodium Bicarbonate 150 MEQ Q6H 03/15 2345 DC Dextrose/Water 1,000 ML IV 03/16 1144 Sodium Bicarbonate 150 MEQ Q6H 03/15 1430 DC 03/15 Dextrose/Water 1,000 ML IV 03/15 2029 1600 Sodium Bicarbonate 75 MEQ Q6H 03/15 1415 DC Sodium Chloride 1,000 ML IV 03/15 2014 Sodium Bicarbonate 1,300 MG TID 03/15 0900 DC 03/15 PO 0851 Sodium Chloride 1,000 ML Q10H 03/15 1100 DC 03/15 IV 1435 Results Pertinent Lab Results: Laboratory Tests 03/16 03/15 03/15 03/15 03/15 0714 2145 1600 1500 1010 Chemistry Sodium (137 - 145 mmol/L) 135 L 132 L Cancelled 132 L Potassium (3.5 - 5.1 mmol/L) 3.2 L 3.6 Cancelled 4.6 Chloride (98 - 107 mmol/L) 101 101 Cancelled 104 Carbon Dioxide (22 - 30 mmol/L) 21 L 16 L Cancelled 11 L Anion Gap (5 - 16) 13 16 Cancelled 17 H BUN (7 - 17 mg/dL) 75 H 78 H Cancelled 79 H Creatinine (0.5 - 1.0 mg/dL) 9.5 *H 10.4 *H Cancelled 10.8 *H Estimated GFR (>60 ml/min) 5 L 4 L 4 L BUN/Creatinine Ratio (7 - 25 %) 7.9 7.5 Cancelled 7.3 Calcium (8.4 - 10.2 mg/dL) Pending 6.8 L Phosphorus (2.5 - 4.5 mg/dL) 4.7 H 5.2 H Magnesium (1.6 - 2.3 mg/dL) 1.0 L 1.2 L Coagulation PT (9.4 - 12.5 SEC) 14.3 H INR (0.90 - 1.19) 1.31 H /23 03/15 0800 0156 Chemistry Sodium (137 - 145 mmol/L) 129 L 135 L Potassium (3.5 - 5.1 mmol/L) 4.3 2.4 *L Chloride (98 - 107 mmol/L) 104 111 H Carbon Dioxide (22 - 30 mmol/L) 9 *L 11 L Anion Gap (5 - 16) 16 13 BUN (7 - 17 mg/dL) 80 H 70 H Creatinine (0.5 - 1.0 mg/dL) 10.9 *H 9.6 *H Estimated GFR (>60 ml/min) 4 L 5 L BUN/Creatinine Ratio (7 - 25 %) 7.3 7.3 Serum Osmolality (285 - 295 MOSM/KG) 300 H Calcium (8.4 - 10.2 mg/dL) 6.4 L Phosphorus (2.5 - 4.5 mg/dL) 7.3 H Magnesium (1.6 - 2.3 mg/dL) 1.0 L 0.9 *L Creatine Kinase (30 - 135 U/L) 24 L Hematology CBC w Diff NO MAN DIFF REQ WBC (4.8 - 10.8 /CUMM) 10.2 RBC (4.20 - 5.40 /CUMM) 4.47 Hgb (12.0 - 16.0 G/DL) 11.0 L Hct (37 - 47 %) 33.2 L MCV (81.0 - 99.0 FL) 74.3 L MCH (27.0 - 31.0 PG) 24.7 L MCHC (33.0 - 37.0 G/DL) 33.2 RDW (11.5 - 14.5 %) 16.0 H Plt Count (130 - 400 /CUMM) 306 MPV (7.4 - 10.4 FL) 7.6 Gran % (42.2 - 75.2 %) 75.8 H Lymphocytes % (20.5 - 51.1 %) 13.4 L Monocytes % (1.7 - 9.3 %) 8.7 Eosinophils % (0 - 5 %) 1.5 Basophils % (0.0 - 2.0 %) 0.6 Absolute Granulocytes (1.4 - 6.5 /CUMM) 7.7 H Absolute Lymphocytes (1.2 - 3.4 /CUMM) 1.4 Absolute Monocytes (0.10 - 0.60 /CUMM) 0.9 H Absolute Eosinophils (0.0 - 0.7 /CUMM) 0.2 Absolute Basophils (0.0 - 0.2 /CUMM) 0.1 03/14 Chemistry Lactic Acid (0.7 - 2.1 mmol/L) 1.0 Urines Urinalysis LIGHT H Urine Color (YEL,AMB,STR) YEL Urine Clarity (CLEAR) CLDY H Urine pH (5.0 - 8.0) 7.5 Ur Specific [place] (1.001 - 1.035) 1.020 Urine Protein (NEG,<30 MG/DL) 100 H Urine Ketones (NEG) NEG Urine Nitrite (NEG) NEG Urine Bilirubin (NEG) NEG Urine Urobilinogen (0.1 - 1.0 EU/dl) 0.2 Ur Leukocyte Esterase (NEG) LARGE H Ur Microscopic SEDIMENT EXAMINED Urine RBC (0 - 5 /HPF) 5-10 H Urine WBC (0 - 2 /HPF) PACKD H Ur Epithelial Cells (NONE,FEW) MOD H Urine Bacteria (NEG/NONE) PACKD H Urine Mucus (FEW,NONE) FEW Urine Hemoglobin (NEG) SMALL H Urine Osmolality (300 - 1000 MOSM/KG) 297 L Ur Random Creatinine (mg/dL) 27.7 Ur Random Sodium (30 - 90 mmol/L) 27 L Ur Random Potassium (mmol/L) 13.3 Fraction Sodium Excret (<1% %) 9.1 H Urine Glucose (N MG/DL) NEG Urine Test NEGATIVE 03/14 Blood Gas Bicarbonate Actual (22 - 26 MEQ/L) 9.3 L Mixed VBG pH (7.31 - 7.41 PH) 7.13 L Mixed VBG pCO2 (41 - 51 TORR) 29 L Mixed VBG O2 Saturation (35 - 45 TORR) 53 H Carboxyhemoglobin (1.5 - 5.0 %) 0.7 L O2 Concentration % RA Chemistry Sodium (137 - 145 mmol/L) 128 L Potassium (3.5 - 5.1 mmol/L) 3.2 L Chloride (98 - 107 mmol/L) 101 Carbon Dioxide (22 - 30 mmol/L) 8 *L Anion Gap (5 - 16) 19 H BUN (7 - 17 mg/dL) 83 H Creatinine (0.5 - 1.0 mg/dL) 11.9 *H Estimated GFR (>60 ml/min) 4 L BUN/Creatinine Ratio (7 - 25 %) 7.0 Glucose (65 - 99 mg/dL) 96 Serum Osmolality (285 - 295 MOSM/KG) 299 H Calcium (8.4 - 10.2 mg/dL) 6.5 L Phosphorus (2.5 - 4.5 mg/dL) 8.7 H Total Bilirubin (0.2 - 1.3 mg/dL) 0.4 AST (14 - 36 U/L) 9 L ALT (9 - 52 U/L) 17 Alkaline Phosphatase (<127 U/L) 176 H Total Protein (6.3 - 8.2 g/dL) 7.5 Albumin (3.5 - 5.0 g/dL) 3.5 Globulin (1.9 - 4.2 gm/dL) 4.0 Albumin/Globulin Ratio (1.1 - 2.2 %) 0.9 L Total Beta HCG (NEGATIVE) NEGATIVE Hematology CBC w Diff NO MAN DIFF REQ WBC (4.8 - 10.8 /CUMM) 12.5 H RBC (4.20 - 5.40 /CUMM) 4.77 Hgb (12.0 - 16.0 G/DL) 11.7 L Hct (37 - 47 %) 35.4 L MCV (81.0 - 99.0 FL) 74.2 L MCH (27.0 - 31.0 PG) 24.6 L MCHC (33.0 - 37.0 G/DL) 33.1 RDW (11.5 - 14.5 %) 16.0 H Plt Count (130 - 400 /CUMM) 312 MPV (7.4 - 10.4 FL) 7.3 L Gran % (42.2 - 75.2 %) 68.2 Lymphocytes % (20.5 - 51.1 %) 20.7 Monocytes % (1.7 - 9.3 %) 8.4 Eosinophils % (0 - 5 %) 2.2 Basophils % (0.0 - 2.0 %) 0.5 Absolute Granulocytes (1.4 - 6.5 /CUMM) 8.6 H Absolute Lymphocytes (1.2 - 3.4 /CUMM) 2.6 Absolute Monocytes (0.10 - 0.60 /CUMM) 1.1 H Absolute Eosinophils (0.0 - 0.7 /CUMM) 0.3 Absolute Basophils (0.0 - 0.2 /CUMM) 0.1 Miscellaneous Phlebotomy Draw Site R
--- NOTE | 2018-03-16 15:59 | RADIOLOGY REPORT ---
EXAMINATION: Intraoperative fluoroscopy CLINICAL INFORMATION: Left ureteroscopically with stent placement COMPARISON: CT abdomen pelvis 03/14/2018 TECHNIQUE: Intraoperative fluoroscopy was provided for use by Dr. Nance. A total of 17 images were saved to PACS. A radiologist was not present during imaging. TOTAL FLUOROSCOPIC TIME: 51 seconds FINDINGS\E\IMPRESSION: Intraoperative fluoroscopy provided for use by Dr. Nance. Please see operative note for detailed findings.
[2018-03-16 16:00] VITALS: BP 88/60
[2018-03-16 22:12] VITALS: BP 102/60
[2018-03-17 06:35] VITALS: BP 100/54; BP 100/58
--- NOTE | 2018-03-17 07:42 | PN- Housestaff ---
Paulie Workman 03/17/18 0741: Subjective Follow-up For: Acute on Chronic kidney failure Subjective: Patient seen and examined at bedside. There is no acute complaint. Patient denies chest pain, palpitation, abdominal pain, diarrhea, constipation, fever, chills. Review of Systems Constitutional: Reports: see HPI. Objective Last 24 Hrs of Vital Signs/I&O Vital Signs Date Time Temp Pulse Resp B/P B/P Pulse O2 O2 Flow FiO2 Mean Ox Delivery Rate 03/17 0635 99.1 94 18 100/58 96 03/16 2212 98.8 106 18 102/60 97 Room Air 03/16 1600 97.8 90 18 88/60 94 Room Air Intake & Output 03/17 1600 03/17 0800 03/17 0000 Intake Total 1880 1400 Output Total 650 1000 Balance 1230 400 Intake, IV 800 800 Intake, Oral 1080 600 Output, Stool 200 400 Output, Urine 450 600 Physical Exam General Appearance: Alert, Oriented X3, Cooperative, No Acute Distress Assessment/Plan Assessment: 37-year-old female with past medical history spinal bipedal(status post colostomy, urostomy), craniotomy status post ventriculoperitoneal shunt, right lower extremity below-knee amputations stump, CKD stage V status post failed left upper extremity artery ventricular fistula, recurrent nephrolithiasis status post lithotripsies, right kidney atrophy, chronic metabolic acidosis, history of struvite stone and staghorn stone in the left kidney, anemia of chronic disease, decubitus ulcer presented emergency department with decreased appetite, myalgias and left flank pain for the last 5 days. Her labs were significant at the time presentation emergency department with a leukocytosis of 12.5 mg, H&H 11.7/34, sodium 128, potassium 3.3, chloride 101, bicarbonate, anion gap 19, calcium 6.5, albumin 3.5, bun 83, creatinine 11.9, venous pH 7.13. CT imaging showed a large staghorn calculus in the left kidney with multiple additional nonobstructing left renal calculi and 1. 6 cm calculus in the left distal ureter proximity to urostomy without hydronephrosis or hydroureter, nonobstructing right nephrolithiasis 4 centimeter band of calculi in the right distal ureter. Right kidney atrophy without hydronephrosis, cholelithiasis without cholecystitis. Hepato-steatosis, decubitus ulcer posterior to the right acetabulum/ischium which extends to the depth of the bone. Acute kidney injury on chronic kidney disease: -The patient recent derange renal function test reflect that she is having acute kidney injury. -She also having multiple kidney stones especially stag horn in the left kidney as well as renal system defect can lead to recurrent acute kidney injury. -She is on bicarb tablets as well as IV bicarb is given to increase bicarb level. -Magnesium chloride is also given to correct her lower magnesium level. -Normal saline fluid started to correct her hyponatremia due to dehydration. -If the patient potassium level coming down to 3 will shift the patient to to limit. Today patient last K level 4, calcium 6.5, phosphate 2.3, magnesium 1. Calcium will be corrected, phosphate binder discontinued, will follow up for tomorrow a.m. BEP. -Nephrology review appreciated. Ward Maid recommended not to drain the blood until tomorrow a.m. *Ward Maid planning for AV fistula for eminent dialysis. -We will follow-up further nephrology recommendation for dialysis. Nephrolithiasis: Urologist Dr. Nance planned procedure yesterday to relieve the stone. We will observe the patient if the kidney function improved then will discharge the patient. If the patient kidney function still derange and had such a high creatinine will go for dialysis. Patient is n.p.o. from now. Dr. Nance did procedure yesterday: Reading per Dr. Nance to update his notes Decubitus ulcers; -Wound care consultation placed recommendation followed -They will take care of the patient while -Changing dressing daily -She has already getting treatment for wound care *Change position every 2 hours *Continue home medication *DVT GI prophylaxis *Healthy diet *Full code Problem List: 1. Colostomy 2. Amputated above knee 3. Spina bifida 4. UROSTOMY 5. Decubital ulcer 6. Acute kidney injury 7. CKD (chronic kidney disease) stage 4, GFR 15-29 ml/min Pain Ratin Pain Location: No pain Pain Goal: Remain pain free Pain Plan: Pain management pathway Tomorrow's Labs & Rationales: BEP, serum calcium, serum phosphorus serum magnesium, Johnson SAGE,Amir 03/17/18 1325: Attending MD Review Statement Attending Statement Attending MD Statement: examined this patient, discuss w/resident/PA/[employer]AL [employer] MAGISTRATE, agreed w/resident/PA/[employer]USTRI[employer] MAGISTRATE, reviewed EMR data (avail), discussed with nursing Attending Assessment/Plan: Pt was seen and evaluted. Chart reviewed, s/p stent placement --f/u Urology recs --Cr trending down, appreciate renal eval --rest of the plan as per resident's note
[2018-03-17 08:53] LABS: ABSOLUTE BASOPHIL COUNT 0 /CUMM (0.0-0.2); ABSOLUTE EOSINOPHIL COUNT 0.3 /CUMM (0.0-0.7); ABSOLUTE GRANULOCYTE CT 5.2 /CUMM (1.4-6.5); ABSOLUTE LYMPH COUNT 3.5 /CUMM (1.2-3.4); ABSOLUTE MONOCYTE COUNT 1.3 /CUMM (0.10-0.60); BASOPHIL % 0.4 % (0.0-2.0); EOSINOPHIL % 2.9 % (0-5); GRANULOCYTE % 50.8 % (42.2-75.2); HEMATOCRIT 30.4 % (37-47); MEAN CORPUSCULAR HGB 24.3 PG (27.0-31.0); MEAN CORPUSCULAR HGB CONC 32.3 G/DL (33.0-37.0); MEAN CORPUSCULAR VOLUME 75.4 FL (81.0-99.0); MEAN PLATELET VOLUME 7.2 FL (7.4-10.4); PLATELET COUNT 259 /CUMM (130-400); RBC DISTRIBUTION WIDTH 16.2 % (11.5-14.5); RED BLOOD CELL CT 4.03 /CUMM (4.20-5.40); WHITE BLOOD CELL COUNT 10.3 /CUMM (4.8-10.8)
--- NOTE | 2018-03-17 11:14 | PN- Nephrology ---
Assessment/Plan Nephrology Assessment: Renal function better. Suggestion: Continue current treatment, recheck labs in AM. Subjective Subjective: Patient s/p left stent yesterday. No complaints. Objective Vital Signs and I&Os Vital Signs Date Time Temp Pulse Resp B/P B/P Pulse O2 O2 Flow FiO2 Mean Ox Delivery Rate 03/17 0635 99.1 94 18 100/58 96 03/16 2212 98.8 106 18 102/60 97 Room Air 03/16 1600 97.8 90 18 88/60 94 Room Air Intake & Output 03/17 1600 03/17 0400 03/16 1600 03/16 0400 03/15 1600 03/15 0400 Intake Total 1880 1400 2900 300 1955 Output Total 650 1000 1125 1085 750 100 Balance 8199 448 9121 -785 1205 -100 Intake, IV 851 540 4429 1195 Intake, Oral 3160 386 5005 300 760 Number 1 Bowel Movements Output, Stool 200 400 525 145 200 Output, Urine 450 600 600 940 550 100 Patient 199 lb 200 lb Weight Weight Bed scale Measurement Method Physical Exam: NAD VS as above Lung: clear CV: no rub Abd: nontender Exts: no edema Neuro: A&O Current Medications: Current Medications Sig/Rolo Start time Last Medication Dose Route Stop Time Status Admin Acetaminophen 650 MG Q6P PRN 03/14 2130 AC PO Fentanyl Citrate 0 .STK-MED ONE 03/16 1404 DC .ROUTE Heparin Sodium 5,000 UNIT Q8 03/14 2200 AC 03/17 (Porcine) SC 0513 Hydromorphone HCl 0 .STK-MED ONE 03/16 1552 DC .ROUTE Hydromorphone HCl 1 MG Q4P PRN 03/15 1745 AC 03/17 IV 0937 Hydroxyzine HCl 25 MG TIDPRN PRN 03/16 1030 AC 03/17 PO 0022 Magnesium Chloride 64 MG TID 03/15 0457 AC 03/17 PO 0853 Midazolam HCl 0 .STK-MED ONE 03/16 1404 DC .ROUTE Nystatin 1 JAYSON TID 03/15 2145 AC 03/17 TOP 0854 Patient Medication 1 ED ONE ONE 03/16 1800 DC Teaching ED 03/16 1801 Potassium Chloride 40 MEQ ONCE ONE 03/16 1600 DC 03/16 PO 03/16 1601 1650 Sevelamer Carbonate 2,400 MG WM 03/15 0800 AC 03/17 PO 0853 Sodium Bicarbonate 1,300 MG TID 03/16 2100 AC 03/17 PO 0853 Sodium Bicarbonate 100 MEQ Q6H 03/16 1045 DC 03/16 Dextrose/Water 1,000 ML IV 03/16 1644 1304 Sodium Chloride 1,000 ML Q6H 03/16 1615 AC 03/17 IV 0330 Results Pertinent Lab Results: Laboratory Tests 03/17 03/16 03/16 03/16 0815 2000 1213 0714 Chemistry Sodium (137 - 145 mmol/L) 137 135 L 135 L 135 L Potassium (3.5 - 5.1 mmol/L) 4.0 4.4 3.0 L 3.2 L Chloride (98 - 107 mmol/L) 105 104 100 101 Carbon Dioxide (22 - 30 mmol/L) 22 20 L 23 21 L Anion Gap (5 - 16) 10 12 12 13 BUN (7 - 17 mg/dL) 63 H 68 H 72 H 75 H Creatinine (0.5 - 1.0 mg/dL) 8.2 *H 8.8 *H 9.3 *H 9.5 *H Estimated GFR (>60 ml/min) 6 L 5 L 5 L 5 L BUN/Creatinine Ratio (7 - 25 %) 7.7 7.7 7.7 7.9 Calcium (8.4 - 10.2 mg/dL) 6.6 L Phosphorus (2.5 - 4.5 mg/dL) 4.7 H Magnesium (1.6 - 2.3 mg/dL) 1.0 L Hematology CBC w Diff NO MAN DIFF REQ WBC (4.8 - 10.8 /CUMM) 10.3 RBC (4.20 - 5.40 /CUMM) 4.03 L Hgb (12.0 - 16.0 G/DL) 9.8 L Hct (37 - 47 %) 30.4 L MCV (81.0 - 99.0 FL) 75.4 L MCH (27.0 - 31.0 PG) 24.3 L MCHC (33.0 - 37.0 G/DL) 32.3 L RDW (11.5 - 14.5 %) 16.2 H Plt Count (130 - 400 /CUMM) 259 MPV (7.4 - 10.4 FL) 7.2 L Gran % (42.2 - 75.2 %) 50.8 Lymphocytes % (20.5 - 51.1 %) 33.7 Monocytes % (1.7 - 9.3 %) 12.2 H Eosinophils % (0 - 5 %) 2.9 Basophils % (0.0 - 2.0 %) 0.4 Absolute Granulocytes (1.4 - 6.5 /CUMM) 5.2 Absolute Lymphocytes (1.2 - 3.4 /CUMM) 3.5 H Absolute Monocytes (0.10 - 0.60 /CUMM) 1.3 H Absolute Eosinophils (0.0 - 0.7 /CUMM) 0.3 Absolute Basophils (0.0 - 0.2 /CUMM) 0 03/15 03/15 03/15 03/15 2145 1600 1500 1010 Chemistry Sodium (137 - 145 mmol/L) 132 L Cancelled 132 L Potassium (3.5 - 5.1 mmol/L) 3.6 Cancelled 4.6 Chloride (98 - 107 mmol/L) 101 Cancelled 104 Carbon Dioxide (22 - 30 mmol/L) 16 L Cancelled 11 L Anion Gap (5 - 16) 16 Cancelled 17 H BUN (7 - 17 mg/dL) 78 H Cancelled 79 H Creatinine (0.5 - 1.0 mg/dL) 10.4 *H Cancelled 10.8 *H Estimated GFR (>60 ml/min) 4 L 4 L BUN/Creatinine Ratio (7 - 25 %) 7.5 Cancelled 7.3 Calcium (8.4 - 10.2 mg/dL) 6.8 L Phosphorus (2.5 - 4.5 mg/dL) 5.2 H Magnesium (1.6 - 2.3 mg/dL) 1.2 L Coagulation PT (9.4 - 12.5 SEC) 14.3 H INR (0.90 - 1.19) 1.31 H 03/15 03/15 0800 0156 Chemistry Sodium (137 - 145 mmol/L) 129 L 135 L Potassium (3.5 - 5.1 mmol/L) 4.3 2.4 *L Chloride (98 - 107 mmol/L) 104 111 H Carbon Dioxide (22 - 30 mmol/L) 9 *L 11 L Anion Gap (5 - 16) 16 13 BUN (7 - 17 mg/dL) 80 H 70 H Creatinine (0.5 - 1.0 mg/dL) 10.9 *H 9.6 *H Estimated GFR (>60 ml/min) 4 L 5 L BUN/Creatinine Ratio (7 - 25 %) 7.3 7.3 Serum Osmolality (285 - 295 MOSM/KG) 300 H Calcium (8.4 - 10.2 mg/dL) 6.4 L Phosphorus (2.5 - 4.5 mg/dL) 7.3 H Magnesium (1.6 - 2.3 mg/dL) 1.0 L 0.9 *L Creatine Kinase (30 - 135 U/L) 24 L Hematology CBC w Diff NO MAN DIFF REQ WBC (4.8 - 10.8 /CUMM) 10.2 RBC (4.20 - 5.40 /CUMM) 4.47 Hgb (12.0 - 16.0 G/DL) 11.0 L Hct (37 - 47 %) 33.2 L MCV (81.0 - 99.0 FL) 74.3 L MCH (27.0 - 31.0 PG) 24.7 L MCHC (33.0 - 37.0 G/DL) 33.2 RDW (11.5 - 14.5 %) 16.0 H Plt Count (130 - 400 /CUMM) 306 MPV (7.4 - 10.4 FL) 7.6 Gran % (42.2 - 75.2 %) 75.8 H Lymphocytes % (20.5 - 51.1 %) 13.4 L Monocytes % (1.7 - 9.3 %) 8.7 Eosinophils % (0 - 5 %) 1.5 Basophils % (0.0 - 2.0 %) 0.6 Absolute Granulocytes (1.4 - 6.5 /CUMM) 7.7 H Absolute Lymphocytes (1.2 - 3.4 /CUMM) 1.4 Absolute Monocytes (0.10 - 0.60 /CUMM) 0.9 H Absolute Eosinophils (0.0 - 0.7 /CUMM) 0.2 Absolute Basophils (0.0 - 0.2 /CUMM) 0.1 03/14 Chemistry Lactic Acid (0.7 - 2.1 mmol/L) 1.0 Urines Urinalysis LIGHT H Urine Color (YEL,AMB,STR) YEL Urine Clarity (CLEAR) CLDY H Urine pH (5.0 - 8.0) 7.5 Ur Specific [place] (1.001 - 1.035) 1.020 Urine Protein (NEG,<30 MG/DL) 100 H Urine Ketones (NEG) NEG Urine Nitrite (NEG) NEG Urine Bilirubin (NEG) NEG Urine Urobilinogen (0.1 - 1.0 EU/dl) 0.2 Ur Leukocyte Esterase (NEG) LARGE H Ur Microscopic SEDIMENT EXAMINED Urine RBC (0 - 5 /HPF) 5-10 H Urine WBC (0 - 2 /HPF) PACKD H Ur Epithelial Cells (NONE,FEW) MOD H Urine Bacteria (NEG/NONE) PACKD H Urine Mucus (FEW,NONE) FEW Urine Hemoglobin (NEG) SMALL H Urine Osmolality (300 - 1000 MOSM/KG) 297 L Ur Random Creatinine (mg/dL) 27.7 Ur Random Sodium (30 - 90 mmol/L) 27 L Ur Random Potassium (mmol/L) 13.3 Fraction Sodium Excret (<1% %) 9.1 H Urine Glucose (N MG/DL) NEG Urine Test NEGATIVE 03/14 1745 Blood Gas Bicarbonate Actual (22 - 26 MEQ/L) 9.3 L Mixed VBG pH (7.31 - 7.41 PH) 7.13 L Mixed VBG pCO2 (41 - 51 TORR) 29 L Mixed VBG O2 Saturation (35 - 45 TORR) 53 H Carboxyhemoglobin (1.5 - 5.0 %) 0.7 L O2 Concentration % RA Chemistry Sodium (137 - 145 mmol/L) 128 L Potassium (3.5 - 5.1 mmol/L) 3.2 L Chloride (98 - 107 mmol/L) 101 Carbon Dioxide (22 - 30 mmol/L) 8 *L Anion Gap (5 - 16) 19 H BUN (7 - 17 mg/dL) 83 H Creatinine (0.5 - 1.0 mg/dL) 11.9 *H Estimated GFR (>60 ml/min) 4 L BUN/Creatinine Ratio (7 - 25 %) 7.0 Glucose (65 - 99 mg/dL) 96 Serum Osmolality (285 - 295 MOSM/KG) 299 H Calcium (8.4 - 10.2 mg/dL) 6.5 L Phosphorus (2.5 - 4.5 mg/dL) 8.7 H Total Bilirubin (0.2 - 1.3 mg/dL) 0.4 AST (14 - 36 U/L) 9 L ALT (9 - 52 U/L) 17 Alkaline Phosphatase (<127 U/L) 176 H Total Protein (6.3 - 8.2 g/dL) 7.5 Albumin (3.5 - 5.0 g/dL) 3.5 Globulin (1.9 - 4.2 gm/dL) 4.0 Albumin/Globulin Ratio (1.1 - 2.2 %) 0.9 L Total Beta HCG (NEGATIVE) NEGATIVE Hematology CBC w Diff NO MAN DIFF REQ WBC (4.8 - 10.8 /CUMM) 12.5 H RBC (4.20 - 5.40 /CUMM) 4.77 Hgb (12.0 - 16.0 G/DL) 11.7 L Hct (37 - 47 %) 35.4 L MCV (81.0 - 99.0 FL) 74.2 L MCH (27.0 - 31.0 PG) 24.6 L MCHC (33.0 - 37.0 G/DL) 33.1 RDW (11.5 - 14.5 %) 16.0 H Plt Count (130 - 400 /CUMM) 312 MPV (7.4 - 10.4 FL) 7.3 L Gran % (42.2 - 75.2 %) 68.2 Lymphocytes % (20.5 - 51.1 %) 20.7 Monocytes % (1.7 - 9.3 %) 8.4 Eosinophils % (0 - 5 %) 2.2 Basophils % (0.0 - 2.0 %) 0.5 Absolute Granulocytes (1.4 - 6.5 /CUMM) 8.6 H Absolute Lymphocytes (1.2 - 3.4 /CUMM) 2.6 Absolute Monocytes (0.10 - 0.60 /CUMM) 1.1 H Absolute Eosinophils (0.0 - 0.7 /CUMM) 0.3 Absolute Basophils (0.0 - 0.2 /CUMM) 0.1 Miscellaneous Phlebotomy Draw Site R
[2018-03-17 15:42] VITALS: BP 100/54
[2018-03-17 22:44] VITALS: BP 98/60
[2018-03-18 06:35] VITALS: BP 108/68
--- NOTE | 2018-03-18 07:30 | PN- Housestaff ---
Paulie Workman 03/18/18 0719: Subjective Follow-up For: Acute kidney injury chronic metabolic acidosis, Review of Systems Constitutional: Reports: see HPI. Objective Last 24 Hrs of Vital Signs/I&O Vital Signs Date Time Temp Pulse Resp B/P B/P Pulse O2 O2 Flow FiO2 Mean Ox Delivery Rate 03/18 0635 98.5 83 18 108/68 93 Room Air 03/17 2244 98.2 102 18 98/60 94 Room Air 03/17 1542 98.5 97 20 100/54 97 Intake & Output 03/18 0800 03/18 0000 03/17 1600 Intake Total 2300 880 600 Output Total 1250 250 800 Balance 1050 630 -200 Intake, IV 800 400 Intake, Oral 1500 480 600 Output, Stool 1250 250 300 Output, Urine 500 Physical Exam General Appearance: Alert, Oriented X3, Cooperative, No Acute Distress Assessment/Plan Assessment: 37-year-old female with past medical history spinal bipedal(status post colostomy, urostomy), craniotomy status post ventriculoperitoneal shunt, right lower extremity below-knee amputations stump, CKD stage V status post failed left upper extremity artery ventricular fistula, recurrent nephrolithiasis status post lithotripsies, right kidney atrophy, chronic metabolic acidosis, history of struvite stone and staghorn stone in the left kidney, anemia of chronic disease, decubitus ulcer presented emergency department with decreased appetite, myalgias and left flank pain for the last 5 days. Her labs were significant at the time presentation emergency department with a leukocytosis of 12.5 mg, H&H 11.7/34, sodium 128, potassium 3.3, chloride 101, bicarbonate, anion gap 19, calcium 6.5, albumin 3.5, bun 83, creatinine 11.9, venous pH 7.13. CT imaging showed a large staghorn calculus in the left kidney with multiple additional nonobstructing left renal calculi and 1. 6 cm calculus in the left distal ureter proximity to urostomy without hydronephrosis or hydroureter, nonobstructing right nephrolithiasis 4 centimeter band of calculi in the right distal ureter. Right kidney atrophy without hydronephrosis, cholelithiasis without cholecystitis. Hepato-steatosis, decubitus ulcer posterior to the right acetabulum/ischium which extends to the depth of the bone. Acute kidney injury on chronic kidney disease: -The patient recent derange renal function test reflect that she is having acute kidney injury. -She also having multiple kidney stones especially stag horn in the left kidney as well as renal system defect can lead to recurrent acute kidney injury. -She is on bicarb tablets as well as IV bicarb is given to increase bicarb level. --If the patient potassium level coming down to 3 will shift the patient to to limit -Today patient last K level 4.1, calcium 6.8, phosphate 2.4, magnesium 1. Calcium will be corrected, phosphate binder discontinued, will follow up for tomorrow a.m. BEP. *Atm Servicer planning for AV fistula for eminent dialysis. -We will follow-up further nephrology recommendation for dialysis. -Creatinine 7.4 trending down Nephrolithiasis: Urologist Dr. Nance planned procedure yesterday to relieve the stone. We will observe the patient if the kidney function improved then will discharge the patient. If the patient kidney function still derange and had such a high creatinine will go for dialysis. Dr. Nance did procedure 2 days ago; -We will follow his note there is any updates Decubitus ulcers; -Wound care consultation placed recommendation followed -They will take care of the patient while -Changing dressing daily -She has already getting treatment for wound care *Change position every 2 hours *Continue home medication *DVT GI prophylaxis *Healthy diet *Full code Problem List: 1. Amputated above knee 2. Spina bifida 3. UROSTOMY 4. Acute on chronic kidney failure 5. Decubital ulcer 6. Metabolic acidosis 7. UTI (urinary tract infection) 8. Acute kidney injury Pain Ratin Pain Location: No pain Pain Goal: Remain pain free Pain Plan: No pain Tomorrow's Labs & Rationales: CANDE Ornelas MD,Amir 03/18/18 1146: Attending MD Review Statement Attending Statement Attending MD Statement: examined this patient, discuss w/resident/PA/911 EMERGENCY SERVICES DISPATCHER, agreed w/resident/PA/911 EMERGENCY SERVICES DISPATCHER, reviewed EMR data (avail), discussed with nursing Attending Assessment/Plan: Pt was seen and evaluated. Chart reviewed. Reports doing OK VSS Cr improving appreciate Renal input f/u Urology recs rest of the plan as per resident's note rest of the plan as per resident's note
[2018-03-18 15:59] VITALS: BP 100/60
[2018-03-18 22:36] VITALS: BP 112/72
--- NOTE | 2018-03-19 07:09 | PN- Housestaff ---
Paulie Workman 03/19/18 0709: Subjective Follow-up For: Chronic metabolic acidosis, acute kidney injury, severe electrolyte imbalance Subjective: . She was enjoying her breakfast. She was not complaining of fever, chills, abdominal pain, diarrhea, chest pain, palpitation, confusion. Review of Systems Constitutional: Reports: see HPI. Objective Last 24 Hrs of Vital Signs/I&O Vital Signs Date Time Temp Pulse Resp B/P B/P Pulse O2 O2 Flow FiO2 Mean Ox Delivery Rate 03/19 0800 Room Air 03/19 0710 99.1 89 20 112/60 94 03/18 2236 99.1 102 20 112/72 96 Room Air 03/18 1559 98.2 90 18 100/60 98 Intake & Output 03/19 1600 03/19 0800 03/19 0000 Intake Total 1600 500 Output Total 550 700 650 Balance -550 900 -150 Intake, IV 600 Intake, Oral 1000 500 Output, Stool 500 350 Output, Urine 550 200 300 Physical Exam General Appearance: Alert, Oriented X3, Cooperative Assessment/Plan Assessment: 37-year-old female with past medical history spinal bipedal(status post colostomy, urostomy), craniotomy status post ventriculoperitoneal shunt, right lower extremity below-knee amputations stump, CKD stage V status post failed left upper extremity artery ventricular fistula, recurrent nephrolithiasis status post lithotripsies, right kidney atrophy, chronic metabolic acidosis, history of struvite stone and staghorn stone in the left kidney, anemia of chronic disease, decubitus ulcer presented emergency department with decreased appetite, myalgias and left flank pain for the last 5 days. Her labs were significant at the time presentation emergency department with a leukocytosis of 12.5 mg, H&H 11.7/34, sodium 128, potassium 3.3, chloride 101, bicarbonate, anion gap 19, calcium 6.5, albumin 3.5, bun 83, creatinine 11.9, venous pH 7.13. CT imaging showed a large staghorn calculus in the left kidney with multiple additional nonobstructing left renal calculi and 1. 6 cm calculus in the left distal ureter proximity to urostomy without hydronephrosis or hydroureter, nonobstructing right nephrolithiasis 4 centimeter band of calculi in the right distal ureter. Right kidney atrophy without hydronephrosis, cholelithiasis without cholecystitis. Hepato-steatosis, decubitus ulcer posterior to the right acetabulum/ischium which extends to the depth of the bone. Acute kidney injury on chronic kidney disease: -The patient recent derange renal function test reflect that she is having acute kidney injury. -She also having multiple kidney stones especially stag horn in the left kidney as well as renal system defect can lead to recurrent acute kidney injury. -She is on bicarb tablets as well as IV bicarb is given to increase bicarb level. -Today patient last K level 4.6, calcium 7.4, phosphate 2.4, magnesium 1.1, creatinine 6.5. *Drama Professor planning for AV fistula for eminent dialysis. *Today classroom instructor classroom instructor will visit the patient *He recommended if creatinine trending down to normal so she can be discharged in the next 24-48 hours -Creatinine6.5 trending down Nephrolithiasis: -Urologist Dr. Nance took care of the patient -We will follow his note there is any updates Decubitus ulcers; -Wound care consultation placed recommendation followed -They will take care of the patient while -Changing dressing daily -She has already getting treatment for wound care *Change position every 2 hours *Continue home medication *DVT GI prophylaxis *Healthy diet *Full code Problem List: 1. Amputated above knee 2. Colostomy 3. Spina bifida 4. UROSTOMY 5. Ventriculoperitoneal shunt 6. Decubital ulcer 7. Metabolic acidosis 8. Renal failure 9. CKD (chronic kidney disease) stage 4, GFR 15-29 ml/min Pain Ratin Pain Location: No pain Pain Goal: Remain pain free Pain Plan: Pain management pathway Tomorrow's Labs & Rationales: CANDE PatricioOmar ojeda 03/19/18 1332: Attending MD Review Statement Attending Statement Attending MD Statement: examined this patient, discuss w/resident/PA/MARKETING PROGRAMS MANAGER, agreed w/resident/PA/MARKETING PROGRAMS MANAGER, discussed with family, reviewed EMR data (avail), discussed with nursing, discussed with case mgmt, reviewed images, amended to note Attending Assessment/Plan: Patient seen/examined bedside. Patient deneis any new complaints. Her creatinine is trending downwards. Her urostomy bag with clear urine and colostomy bag with formed stools. Nephrology and urology are appreciated. Removal of gita catheter as per nephrology. Follow up urology recommendations. OOB to wheelchair. She is wheelchair bound at home.
[2018-03-19 07:10] VITALS: BP 112/60
--- NOTE | 2018-03-19 09:46 | PN- Nephrology ---
Assessment/Plan Nephrology Assessment: Continued improvement in GALI after stent placed. Suggestion: If creatinine better tomorrow would remove Dex. Would try to get up in chair today with mobilzation, plan for discharge in next 24-48 hrs. Subjective Subjective: Feels well, no new complaints except for some right eye tearing and discharge. Objective Vital Signs and I&Os Vital Signs Date Time Temp Pulse Resp B/P B/P Pulse O2 O2 Flow FiO2 Mean Ox Delivery Rate 03/19 0710 99.1 89 20 112/60 94 03/18 2236 99.1 102 20 112/72 96 Room Air 03/18 1559 98.2 90 18 100/60 98 Intake & Output 03/19 1600 03/19 0400 03/18 1600 03/18 0400 03/17 1600 03/17 0400 Intake Total 1600 3540 880 2480 1400 Output Total 700 2150 250 1450 1000 Balance 900 8423 889 4700 400 Intake, IV 600 1540 400 800 800 Intake, Oral 1000 2000 480 1680 600 Output, Stool 500 1850 250 500 400 Output, Urine 200 300 950 600 Physical Exam: NAD VS as above Lung: clear CV: no rub Abd: nontender Exts: no edema Neuro: A&O Current Medications: Current Medications Sig/Rolo Start time Last Medication Dose Route Stop Time Status Admin Acetaminophen 650 MG Q6P PRN 03/14 2130 AC PO Calcium Carbonate 650 MG BID 03/17 2100 AC 03/19 PO 0903 Heparin Sodium 5,000 UNIT Q8 03/14 2200 AC 03/19 (Porcine) SC 0902 Hydromorphone HCl 1 MG Q4P PRN 03/15 1745 AC 03/19 IV 0902 Hydroxyzine HCl 25 MG TIDPRN PRN 03/16 1030 AC 03/19 PO 0031 Magnesium Chloride 64 MG TID 03/15 0457 AC 03/19 PO 0903 Nystatin 5 ML 4 TIMES/DAY 03/18 1710 AC 03/18 PO 2033 Nystatin 1 JAYSON TID 03/15 2145 AC 03/19 TOP 0903 Sevelamer Carbonate 2,400 MG WM 03/15 0800 DC 03/18 PO 1653 Sodium Bicarbonate 1,300 MG TID 03/16 2100 AC 03/19 PO 0903 Sodium Chloride 1,000 ML Q6H 03/16 1615 AC 03/19 IV 0906 Results Pertinent Lab Results: Laboratory Tests 03/19 03/18 03/17 03/16 0803 0825 0815 1999 Chemistry Sodium (137 - 145 mmol/L) 142 139 137 135 L Potassium (3.5 - 5.1 mmol/L) 4.6 4.1 4.0 4.4 Chloride (98 - 107 mmol/L) 113 H 110 H 105 104 Carbon Dioxide (22 - 30 mmol/L) 22 22 22 20 L Anion Gap (5 - 16) 7 8 10 12 BUN (7 - 17 mg/dL) 53 H 56 H 63 H 68 H Creatinine (0.5 - 1.0 mg/dL) 6.5 *H 7.4 *H 8.2 *H 8.8 *H Estimated GFR (>60 ml/min) 7 L 6 L 6 L 5 L BUN/Creatinine Ratio (7 - 25 %) 8.2 7.6 7.7 7.7 Calcium (8.4 - 10.2 mg/dL) 7.4 L 6.8 L 6.5 L Phosphorus (2.5 - 4.5 mg/dL) 2.9 2.4 L 2.3 L Magnesium (1.6 - 2.3 mg/dL) 1.1 L 1.0 L 1.0 L Albumin (3.5 - 5.0 g/dL) 2.7 L Hematology CBC w Diff NO MAN DIFF REQ WBC (4.8 - 10.8 /CUMM) 10.3 RBC (4.20 - 5.40 /CUMM) 4.03 L Hgb (12.0 - 16.0 G/DL) 9.8 L Hct (37 - 47 %) 30.4 L MCV (81.0 - 99.0 FL) 75.4 L MCH (27.0 - 31.0 PG) 24.3 L MCHC (33.0 - 37.0 G/DL) 32.3 L RDW (11.5 - 14.5 %) 16.2 H Plt Count (130 - 400 /CUMM) 259 MPV (7.4 - 10.4 FL) 7.2 L Gran % (42.2 - 75.2 %) 50.8 Lymphocytes % (20.5 - 51.1 %) 33.7 Monocytes % (1.7 - 9.3 %) 12.2 H Eosinophils % (0 - 5 %) 2.9 Basophils % (0.0 - 2.0 %) 0.4 Absolute Granulocytes (1.4 - 6.5 /CUMM) 5.2 Absolute Lymphocytes (1.2 - 3.4 /CUMM) 3.5 H Absolute Monocytes (0.10 - 0.60 /CUMM) 1.3 H Absolute Eosinophils (0.0 - 0.7 /CUMM) 0.3 Absolute Basophils (0.0 - 0.2 /CUMM) 0 03/16 1213 Chemistry Sodium (137 - 145 mmol/L) 135 L Potassium (3.5 - 5.1 mmol/L) 3.0 L Chloride (98 - 107 mmol/L) 100 Carbon Dioxide (22 - 30 mmol/L) 23 Anion Gap (5 - 16) 12 BUN (7 - 17 mg/dL) 72 H Creatinine (0.5 - 1.0 mg/dL) 9.3 *H Estimated GFR (>60 ml/min) 5 L BUN/Creatinine Ratio (7 - 25 %) 7.7
[2018-03-19 14:49] VITALS: BP 110/65
[2018-03-19 22:14] VITALS: BP 98/62
[2018-03-20 06:22] VITALS: BP 104/62
--- NOTE | 2018-03-20 07:07 | PN- Housestaff ---
See Addendum Paulie Workman 03/20/18 0707: Subjective Follow-up For: Chronic metabolic acidosis, acute on chronic kidney injury, Subjective: Patient seen and examined at bedside. There was no active complaint. She denies fever, chills, abdominal pain, diarrhea, constipation, chest pain, palpitation, increased frequency of bowel movement and gastrostomy baG. Review of Systems Constitutional: Reports: see HPI. Objective Last 24 Hrs of Vital Signs/I&O Vital Signs Date Time Temp Pulse Resp B/P B/P Pulse O2 O2 Flow FiO2 Mean Ox Delivery Rate 03/20 1417 98.4 87 18 118/75 97 Room Air 03/20 0622 97.8 92 16 104/62 98 03/19 2214 98.5 82 18 98/62 99 Room Air Intake & Output 03/20 1600 03/20 0800 03/20 0000 Intake Total 1245 Output Total 1125 900 450 Balance -1125 345 -450 Intake, IV 525 Intake, Oral 720 Output, Stool 725 450 Output, Urine 400 450 450 Physical Exam General Appearance: Alert, Oriented X3, Cooperative, No Acute Distress Assessment/Plan Problem List: 1. Colostomy 2. Amputated above knee 3. Decubital ulcer 4. Full code status 5. CKD (chronic kidney disease) stage 4, GFR 15-29 ml/min Pain Ratin Pain Location: No pain Pain Goal: Remain pain free Pain Plan: Pain management pathway Tomorrow's Labs & Rationales: CANDE PatricioOmar ojeda 03/20/18 1138: Attending MD Review Statement Attending Statement Attending MD Statement: examined this patient, discuss w/resident/PA/DIRECTOR RECREATION, agreed w/resident/PA/DIRECTOR RECREATION, discussed with family, reviewed EMR data (avail), discussed with nursing, discussed with case mgmt, reviewed images, amended to note Attending Assessment/Plan: Patient seen/examined bedside. Patient deneis any new complaints. Her creatinine is trending downwards with improvement in GALI for now. Obtain labs from today. Her urostomy bag with clear urine and colostomy bag with formed stools. Nephrology and urology are following. Removal of gita catheter as per nephrology. Follow up urology recommendations. OOB to wheelchair. She is wheelchair bound at home. Monitor creatinine in am and follow nephrology recommendations at [facility].
--- NOTE | 2018-03-20 11:13 | PN- Nephrology ---
Assessment/Plan Nephrology Assessment: GALI from obstruction, superimposed on CKD. No labs today but had been getting better. Suggestion: Will have dialsysis nurse draw labs through Dex catheter today. Dilalysis nurse should be able to draw through there again tomorrow. If labs better today would stop IV fluids, recheck labs in AM and if stable could go home. Subjective Subjective: Patient feeling well, did not get out of bed yesterday. Objective Vital Signs and I&Os Vital Signs Date Time Temp Pulse Resp B/P B/P Pulse O2 O2 Flow FiO2 Mean Ox Delivery Rate 03/20 0622 97.8 92 16 104/62 98 03/19 2214 98.5 82 18 98/62 99 Room Air 03/19 1449 98.9 85 18 110/65 94 Room Air Intake & Output 03/20 1600 03/20 0400 03/19 0400 03/18 0400 Intake Total 1245 2485 3540 880 Output Total 617 221 8269 2150 250 Balance 345 -032 882 5955 630 Intake, IV 525 1125 1540 400 Intake, Oral 720 1360 2000 480 Output, Stool 450 1050 1850 250 Output, Urine 220 395 6705 300 Physical Exam: NAD VS as above Lung: clear CV: no rub Abd: nontender Exts: no edema Neuro: A&O Results Pertinent Lab Results: Laboratory Tests 03/19 03/18 0803 0825 Chemistry Sodium (137 - 145 mmol/L) 142 139 Potassium (3.5 - 5.1 mmol/L) 4.6 4.1 Chloride (98 - 107 mmol/L) 113 H 110 H Carbon Dioxide (22 - 30 mmol/L) 22 22 Anion Gap (5 - 16) 7 8 BUN (7 - 17 mg/dL) 53 H 56 H Creatinine (0.5 - 1.0 mg/dL) 6.5 *H 7.4 *H Estimated GFR (>60 ml/min) 7 L 6 L BUN/Creatinine Ratio (7 - 25 %) 8.2 7.6 Calcium (8.4 - 10.2 mg/dL) 7.4 L 6.8 L Phosphorus (2.5 - 4.5 mg/dL) 2.9 2.4 L Magnesium (1.6 - 2.3 mg/dL) 1.1 L 1.0 L
[2018-03-20 14:17] VITALS: BP 118/75
--- NOTE | 2018-03-20 15:58 | Discharge Summary ---
Hospital Course Allergies: Coded Allergies: latex (PRECAUTIONARY INFORMED BY [facility] R/T PT HAVING SUMIT MOURA 03/14/18) Discharge Instructions Medications at Discharge Discharge Medications: Continue taking these medications: Sodium Bicarbonate (Sodium Bicarbonate) 650 MG TABLET 2 Tablet ORAL THREE TIMES DAILY Qty = 120 Comments: PER PT ALWAYS BEEN TID Sevelamer Carbonate (Renvela) 800 MG TABLET 3 Tablet ORAL THREE TIMES DAILY Qty = 270 Comments: PER PT Cinacalcet HCl (Sensipar) 60 MG TABLET 1 Tablet ORAL DAILY
--- NOTE | 2018-03-20 16:03 | Discharge Summary ---
Visit Information Visit Dates Admission Date: 03/14/18 Discharge Date: 03/21/18 Hospital Course Course Attending Physician: Omar Diaz MD Primary Care Physician: Jordan Vidales DO Hospital Course: 37-year-old female with past medical history spinal bipedal(status post colostomy, urostomy), craniotomy status post ventriculoperitoneal shunt, right lower extremity below-knee amputations stump, CKD stage V status post failed left upper extremity artery ventricular fistula, recurrent nephrolithiasis status post lithotripsies, right kidney atrophy, chronic metabolic acidosis, history of struvite stone and staghorn stone in the left kidney, anemia of chronic disease, decubitus ulcer presented emergency department with decreased appetite, myalgias and left flank pain for 5 days. Hospital course: Her labs were significant at the time presentation to emergency department with a leukocytosis of 12.5 mg, H&H 11.7/34, sodium 128, potassium 3.3, chloride 101, bicarbonate, anion gap 19, calcium 6.5, albumin 3.5, bun 83, creatinine 11.9, venous pH 7.13. CT imaging : showed a large staghorn calculus in the left kidney with multiple additional nonobstructing left renal calculi and 1. 6 cm calculus in the left distal ureter proximity to urostomy without hydronephrosis or hydroureter, nonobstructing right nephrolithiasis 4 centimeter band of calculi in the right distal ureter. Right kidney atrophy without hydronephrosis, cholelithiasis without cholecystitis. Hepato-steatosis, decubitus ulcer posterior to the right acetabulum/ischium which extends to the depth of the bone. She was treated for the following medical condition at hospital. Acute kidney injury on chronic kidney disease/chronic metabolic acidosis: Patient having stage V chronic kidney disease. She presented with aggravated chronic metabolic acidosis. Patient shifted to general medical floor for admission. She is on bicarb tablets as well as IV bicarb is given to increase bicarb level. -Today patient last K level 4.6, calcium 7.4, phosphate 2.4, magnesium 1.1, creatinine 5.5, *Seed Cleaning Machine Operator planning for AV fistula for imminant dialysis. *Today art gallery internship art gallery internship will visit the patient *He recommended if creatinine trending down to normal so she can be discharged in the next 24-48 hours -Creatinine6.5 trending down Nephrolithiasis: -Urologist Dr. Nance took care of the patient -We will follow his note there is any updates Decubitus ulcers; -Wound care consultation placed recommendation followed -They will take care of the patient while -Changing dressing daily -She has already getting treatment for wound care *Change position every 2 hours *Continue home medication *Anticipated discharge *DVT GI prophylaxis *Healthy diet *Full code Allergies: Coded Allergies: latex (PRECAUTIONARY INFORMED BY [facility] R/T PT HAVING SUMIT MOURA 03/14/18) Discharge Instructions Medications at Discharge Discharge Medications: Continue taking these medications: Sodium Bicarbonate (Sodium Bicarbonate) 650 MG TABLET 2 Tablet ORAL THREE TIMES DAILY Qty = 120 Comments: Last Taken: 03/21/18 Time: 10:12 am Sevelamer Carbonate (Renvela) 800 MG TABLET 3 Tablet ORAL THREE TIMES DAILY Qty = 270 Comments: not given in hospital Cinacalcet HCl (Sensipar) 60 MG TABLET 1 Tablet ORAL DAILY Comments: not given in hospital Nystatin (Nystatin) 100,000 UNIT/GRAM CREAM..G. 1 Application On the skin TWICE DAILY Qty = 1 Instructions: , Comments: . This prescription has been renewed Start taking the following new medications: Nystatin (Nystatin) 100,000 UNIT/ML ORAL.SUSP 5 Milliliters ORAL 4 TIMES A DAY as needed for Oral Fungal Qty = 30 No Refills Comments: Last Taken: 03/21/18 Time: 5:00 PM
[2018-03-20 22:03] VITALS: BP 90/50
[2018-03-20 22:03] LABS: ABSOLUTE BASOPHIL COUNT 0 /CUMM (0.0-0.2); ABSOLUTE EOSINOPHIL COUNT 0.7 /CUMM (0.0-0.7); ABSOLUTE GRANULOCYTE CT 5.6 /CUMM (1.4-6.5); ABSOLUTE LYMPH COUNT 2.9 /CUMM (1.2-3.4); ABSOLUTE MONOCYTE COUNT 0.8 /CUMM (0.10-0.60); BASOPHIL % 0.4 % (0.0-2.0); EOSINOPHIL % 6.8 % (0-5); GRANULOCYTE % 55.2 % (42.2-75.2); HEMATOCRIT 31.5 % (37-47); MEAN CORPUSCULAR HGB 24.1 PG (27.0-31.0); MEAN PLATELET VOLUME 7.1 FL (7.4-10.4); PLATELET COUNT 264 /CUMM (130-400); RBC DISTRIBUTION WIDTH 17.3 % (11.5-14.5); RED BLOOD CELL CT 4.03 /CUMM (4.20-5.40); WHITE BLOOD CELL COUNT 10.1 /CUMM (4.8-10.8)
[2018-03-21 07:10] VITALS: BP 110/58
--- NOTE | 2018-03-21 07:30 | Patient Discharge Instructions ---
Discharge Instructions General Discharge Information You were seen/treated for: Metabolic acidosis, Acute on chronic kidney injury, Special Instructions: Follow up with primary care physician in one week follow up with nephrolgist with in two weeks follow up with your urologist in two weeks In case of medical attention please contact your [facility] physician Keep clean personal hygiene Keep urostomy/and osteostomy area clean Diet Continue normal diet: Yes Recommended Diet: Renal Non Dialysis Activity Activity Self Limited: Yes Acute Coronary Syndrome Inclusion Criteria At DC or during hospital stay patient has or had the following: ACS DIAGNOSIS No Discharge Core Measures Meds if any: Prescribed or Continued at Discharge Meds if any: NOT Prescribed or Continued at Discharge Congestive Heart Failure Inclusion Criteria At DC or during hospital stay patient has or had the following: CHF DIAGNOSIS No Discharge Core Measures Meds if any: Prescribed or Continued at Discharge Meds if any: NOT Prescribed or Continued at Discharge Cerebrovascular accident Inclusion Criteria At DC or during hospital stay patient has or had the following: CVA/TIA Diagnosis No Discharge Core Measures Meds if any: Prescribed or Continued at Discharge Meds if any: NOT Prescribed or Continued at Discharge Venous thromboembolism Inclusion Criteria VTE Diagnosis No VTE Type NONE VTE Confirmed by (Test) NONE Discharge Core Measures - Per Current guidelines, there needs to be overlap - treatment for the first 5 days of Warfarin therapy. - If discharged on Warfarin prior to 5 days of - overlap therapy, the patient will need to be - assessed for post discharge needs including - *Post discharge parental anticoagulation - *Warfarin and/or parental anticoagulation education - *Follow up date to check INR post discharge At least 5 days overlap therapy as Inpatient No Meds if any: Prescribed or Continued at Discharge Note: Overlap Therapy is Warfarin and Anticoagulant Meds if any: NOT Prescribed or Continued at Discharge
[2018-03-21 07:58] LABS: ABSOLUTE BASOPHIL COUNT 0.1 /CUMM (0.0-0.2); ABSOLUTE EOSINOPHIL COUNT 0.6 /CUMM (0.0-0.7); ABSOLUTE GRANULOCYTE CT 5.1 /CUMM (1.4-6.5); ABSOLUTE LYMPH COUNT 3.6 /CUMM (1.2-3.4); ABSOLUTE MONOCYTE COUNT 0.7 /CUMM (0.10-0.60); BASOPHIL % 0.5 % (0.0-2.0); EOSINOPHIL % 5.7 % (0-5); GRANULOCYTE % 50.7 % (42.2-75.2); HEMATOCRIT 28.5 % (37-47); MEAN CORPUSCULAR HGB 24.5 PG (27.0-31.0); MEAN CORPUSCULAR HGB CONC 31.4 G/DL (33.0-37.0); MEAN PLATELET VOLUME 7.1 FL (7.4-10.4); PLATELET COUNT 246 /CUMM (130-400); RBC DISTRIBUTION WIDTH 16.9 % (11.5-14.5); RED BLOOD CELL CT 3.66 /CUMM (4.20-5.40)
--- NOTE | 2018-03-21 10:22 | PN- Nephrology ---
Assessment/Plan Nephrology Assessment: Creatinine close to baseline. Suggestion: D/C Dex catheter and discharge patient home. Has follow up with Dr. Granados on . Would keep on oral bicarb. Needs f/u with urology regarding ureteral stent. Subjective Subjective: Patient feels well, no new issues. Objective Vital Signs and I&Os Vital Signs Date Time Temp Pulse Resp B/P B/P Pulse O2 O2 Flow FiO2 Mean Ox Delivery Rate 03/21 0710 97.8 84 20 110/58 98 Room Air 03/20 220 98.3 102 18 90/50 97 Room Air 03/20 1417 98.4 87 18 118/75 97 Room Air Intake & Output 03/21 1600 03/21 0400 03/20 1600 03/20 0400 03/19 1600 03/19 0400 Intake Total 1000 1245 2485 500 Output Total 246 166 8461 450 2350 650 Balance 300 -700 -780 -450 135 -150 Intake, IV 525 1125 Intake, Oral 0060 761 5133 500 Output, Stool 500 1175 1050 350 Output, Urine 200 700 078 265 8318 300 Physical Exam: NAD VS as above Lung: clear CV: no rub Abd: nontender Exts: no edema Neuro: A&O Current Medications: Current Medications Sig/Rolo Start time Last Medication Dose Route Stop Time Status Admin Acetaminophen 650 MG Q6P PRN 03/14 2130 AC PO Calcium Carbonate 650 MG BID 03/17 2100 AC 03/20 PO 2353 Heparin Sodium 5,000 UNIT Q8 03/14 2200 AC 03/21 (Porcine) SC 0624 Hydromorphone HCl 1 MG Q4P PRN 03/15 1745 AC 03/21 IV 0417 Hydroxyzine HCl 25 MG TIDPRN PRN 03/16 1030 AC 03/20 PO 2354 Magnesium Chloride 64 MG TID 03/15 0457 AC 03/20 PO 2353 Nystatin 1 JAYSON TID 03/20 0900 AC 03/20 TOP 2354 Nystatin 5 ML 4 TIMES/DAY 03/18 1710 AC 03/20 PO 2352 Silver Sulfadiazine 1 JAYSON BID 03/20 1415 AC 03/20 TOP 2354 Sodium Bicarbonate 1,300 MG TID 03/16 2100 AC 03/20 PO 2353 Sodium Chloride 1,000 ML .[id number] 03/20 1515 DC 03/20 IV 03/21 0800 2358 Sodium Chloride 1,000 ML Q6H 03/16 1615 DC 03/20 IV 1047 Results Pertinent Lab Results: Laboratory Tests 03/21 03/20 0730 2110 Chemistry Sodium (137 - 145 mmol/L) 144 Potassium (3.5 - 5.1 mmol/L) 4.7 Chloride (98 - 107 mmol/L) 117 H Carbon Dioxide (22 - 30 mmol/L) 24 Anion Gap (5 - 16) 3 L BUN (7 - 17 mg/dL) 42 H Creatinine (0.5 - 1.0 mg/dL) 5.5 *H Estimated GFR (>60 ml/min) 9 L BUN/Creatinine Ratio (7 - 25 %) 7.6 Calcium (8.4 - 10.2 mg/dL) 7.8 L Hematology CBC w Diff NO MAN DIFF REQ NO MAN DIFF REQ WBC (4.8 - 10.8 /CUMM) 10.0 10.1 RBC (4.20 - 5.40 /CUMM) 3.66 L 4.03 L Hgb (12.0 - 16.0 G/DL) 9.0 L 9.7 L Hct (37 - 47 %) 28.5 L 31.5 L MCV (81.0 - 99.0 FL) 78.0 L 78.0 L MCH (27.0 - 31.0 PG) 24.5 L 24.1 L MCHC (33.0 - 37.0 G/DL) 31.4 L 31.0 L RDW (11.5 - 14.5 %) 16.9 H 17.3 H Plt Count (130 - 400 /CUMM) 246 264 MPV (7.4 - 10.4 FL) 7.1 L 7.1 L Gran % (42.2 - 75.2 %) 50.7 55.2 Lymphocytes % (20.5 - 51.1 %) 35.6 29.3 Monocytes % (1.7 - 9.3 %) 7.5 8.3 Eosinophils % (0 - 5 %) 5.7 H 6.8 H Basophils % (0.0 - 2.0 %) 0.5 0.4 Absolute Granulocytes (1.4 - 6.5 /CUMM) 5.1 5.6 Absolute Lymphocytes (1.2 - 3.4 /CUMM) 3.6 H 2.9 Absolute Monocytes (0.10 - 0.60 /CUMM) 0.7 H 0.8 H Absolute Eosinophils (0.0 - 0.7 /CUMM) 0.6 0.7 Absolute Basophils (0.0 - 0.2 /CUMM) 0.1 0 03/20 03/19 1130 0803 Chemistry Sodium (137 - 145 mmol/L) 148 H 142 Potassium (3.5 - 5.1 mmol/L) 4.1 4.6 Chloride (98 - 107 mmol/L) 118 H 113 H Carbon Dioxide (22 - 30 mmol/L) 25 22 Anion Gap (5 - 16) 5 7 BUN (7 - 17 mg/dL) 46 H 53 H Creatinine (0.5 - 1.0 mg/dL) 6.1 *H 6.5 *H Estimated GFR (>60 ml/min) 8 L 7 L BUN/Creatinine Ratio (7 - 25 %) 7.5 8.2 Calcium (8.4 - 10.2 mg/dL) 7.4 L Phosphorus (2.5 - 4.5 mg/dL) 2.9 Magnesium (1.6 - 2.3 mg/dL) 1.1 L
--- NOTE | 2018-03-21 13:33 | PN- Att Addend ---
Attending Addendum Attending Brief Note 37 yo F with history of spina bifida s/p MECHANIC'S ASSISTANT shunt, s/p ileostomy s/p urostomy, recurrent UTI, nephrolithiasis, cholelithiasis, CKD stage IV, right BKA, presented with non radiating left flank pain admitted for GALI on CKD from obstructive uropathy+ dehydration s/p surgical intervention by urology Dr Nance and improvement in creatinine. On exam, lungs clear bilaterally. Abdomen: bowel sound present, soft, obese, NTND. Right ileostomy, left urostomy and left stoma sites intact and has no signs of infection/discharge. Ext: right BKA, left club foot. Patient with signigficant improvement in her creatinine now. Nephrology ok with discharge and follow up with Dr Melgoza on scheduled date in coming week. PO Bicarb replacement at discharge. Dex catheter removal today by IR and anticipate discharge soon. Right buttock and upper thigh multiple decub ulcer: c/w routine wound care and ulcer precautions. CONSULTANTS Nephrology Urology FOLLOW UP Urology Dr Nance in 1-[address] Melgoza as scheduled. Admission Lab Results I reviewed the following labs: Laboratory Tests 03/21 03/20 0730 2110 Chemistry Sodium (137 - 145 mmol/L) 144 Potassium (3.5 - 5.1 mmol/L) 4.7 Chloride (98 - 107 mmol/L) 117 H Carbon Dioxide (22 - 30 mmol/L) 24 Anion Gap (5 - 16) 3 L BUN (7 - 17 mg/dL) 42 H Creatinine (0.5 - 1.0 mg/dL) 5.5 *H Estimated GFR (>60 ml/min) 9 L BUN/Creatinine Ratio (7 - 25 %) 7.6 Calcium (8.4 - 10.2 mg/dL) 7.8 L Hematology CBC w Diff NO MAN DIFF REQ NO MAN DIFF REQ WBC (4.8 - 10.8 /CUMM) 10.0 10.1 RBC (4.20 - 5.40 /CUMM) 3.66 L 4.03 L Hgb (12.0 - 16.0 G/DL) 9.0 L 9.7 L Hct (37 - 47 %) 28.5 L 31.5 L MCV (81.0 - 99.0 FL) 78.0 L 78.0 L MCH (27.0 - 31.0 PG) 24.5 L 24.1 L MCHC (33.0 - 37.0 G/DL) 31.4 L 31.0 L RDW (11.5 - 14.5 %) 16.9 H 17.3 H Plt Count (130 - 400 /CUMM) 246 264 MPV (7.4 - 10.4 FL) 7.1 L 7.1 L Gran % (42.2 - 75.2 %) 50.7 55.2 Lymphocytes % (20.5 - 51.1 %) 35.6 29.3 Monocytes % (1.7 - 9.3 %) 7.5 8.3 Eosinophils % (0 - 5 %) 5.7 H 6.8 H Basophils % (0.0 - 2.0 %) 0.5 0.4 Absolute Granulocytes (1.4 - 6.5 /CUMM) 5.1 5.6 Absolute Lymphocytes (1.2 - 3.4 /CUMM) 3.6 H 2.9 Absolute Monocytes (0.10 - 0.60 /CUMM) 0.7 H 0.8 H Absolute Eosinophils (0.0 - 0.7 /CUMM) 0.6 0.7 Absolute Basophils (0.0 - 0.2 /CUMM) 0.1 0 Admission Meds I reviewed the following Meds: Current Medications Sig/Rolo Start time Last Medication Dose Stop Time Status Admin Acetaminophen 650 MG Q6P PRN 03/14 2130 AC (Tylenol) Calcium Carbonate 650 MG BID 03/17 2100 AC 03/21 (Calcium Carbonate) 1012 Hydromorphone HCl 1 MG Q4P PRN 03/15 1745 AC 03/21 (Dilaudid) 1038 Hydroxyzine HCl 25 MG TIDPRN PRN 03/16 1030 AC 03/20 (Atarax) 2354 Magnesium Chloride 64 MG TID 03/15 0457 AC 03/21 (Slow-Mag) 1013 Nystatin 1 JAYSON TID 03/20 0900 03/21 (Mycostatin) 1013 Nystatin 5 ML 4 TIMES/DAY 03/18 1710 AC 03/21 (Mycostatin Susp) 1013 Silver Sulfadiazine 1 JAYSON BID 03/20 1415 AC 03/21 (Silvadene Cream 1139 50GM ) Sodium Bicarbonate 1,300 MG TID 03/16 2100 AC 03/21 (Sodium Bicarb 325MG 1012 Tab)
--- NOTE | 2018-03-21 13:45 | PN- Housestaff ---
Subjective Follow-up For: Acute on chronic renal failure stage V, chronic metabolic acidosis Subjective: Patient seen and examined at bedside. She was concerned about discharge and removal of tunneled catheter. She denies fever, chills, chest pain, palpitation , abdominal pain, diarrhea, constipation. Review of Systems Constitutional: Reports: see HPI. Objective Last 24 Hrs of Vital Signs/I&O Vital Signs Date Time Temp Pulse Resp B/P B/P Pulse O2 O2 Flow FiO2 Mean Ox Delivery Rate 03/21 1545 98.4 68 18 110/65 98 Room Air 03/21 0800 Room Air 03/21 0710 97.8 84 20 110/58 98 Room Air 03/20 2203 98.3 102 18 90/50 97 Room Air Intake & Output 03/21 1600 03/21 0800 03/21 0000 Intake Total 1080 1000 Output Total 900 700 700 Balance 180 300 -700 Intake, IV 600 Intake, Oral 480 1000 Output, Stool 700 500 Output, Urine 200 200 700 Physical Exam General Appearance: Alert, Oriented X3, Cooperative, No Acute Distress HEENT: Atraumatic, PERRLA, EOMI, Mucous Membr. moist/pink Neck: Supple, No JVD, No thryomegaly Lymphatic: Axillary nl, Cervical nl Cardiovascular: Regular Rate, Normal S1, Normal S2 Lungs: Clear to Auscultation, Normal Air Movement Abdomen: Soft, No Tenderness, No Hepatospenomegaly, No Masses, UROSTOMY, COLOSTOMY BAG Neurological: Normal Speech, Strength at 5/5 X4 Ext, Normal Tone, Sensation Intact, Cranial Nerves 3-12 NL, Reflexes 2+ Extremities: No Clubbing, No Cyanosis, No Edema, Normal Pulses Assessment/Plan Assessment: 37-year-old female with past medical history spinal bipedal(status post colostomy, urostomy), craniotomy status post ventriculoperitoneal shunt, right lower extremity below-knee amputations stump, CKD stage V status post failed left upper extremity artery ventricular fistula, recurrent nephrolithiasis status post lithotripsies, right kidney atrophy, chronic metabolic acidosis, history of struvite stone and staghorn stone in the left kidney, anemia of chronic disease, decubitus ulcer presented emergency department with decreased appetite, myalgias and left flank pain for the last 5 days. Her labs were significant at the time presentation emergency department with a leukocytosis of 12.5 mg, H&H 11.7/34, sodium 128, potassium 3.3, chloride 101, bicarbonate, anion gap 19, calcium 6.5, albumin 3.5, bun 83, creatinine 11.9, venous pH 7.13. CT imaging showed a large staghorn calculus in the left kidney with multiple additional nonobstructing left renal calculi and 1. 6 cm calculus in the left distal ureter proximity to urostomy without hydronephrosis or hydroureter, nonobstructing right nephrolithiasis 4 centimeter band of calculi in the right distal ureter. Right kidney atrophy without hydronephrosis, cholelithiasis without cholecystitis. Hepato-steatosis, decubitus ulcer posterior to the right acetabulum/ischium which extends to the depth of the bone. Acute kidney injury on chronic kidney disease: -The patient recent derange renal function test reflect that she is having acute kidney injury. -She also having multiple kidney stones especially stag horn in the left kidney as well as renal system defect can lead to recurrent acute kidney injury. -She is on bicarb tablets as well as IV bicarb is given to increase bicarb level. -Today patient last K level 4.6, calcium 7.4, phosphate 2.4, magnesium 1.1, creatinine 5.5, *Custodial Foreman planning for AV fistula for imminant dialysis. *Today switch house operator switch house operator will visit the patient *He recommended if creatinine trending down to normal so she can be discharged in the next 24-48 hours -Creatinine6.5 trending down Nephrolithiasis: -Urologist Dr. Nance took care of the patient -We will follow his note there is any updates Decubitus ulcers; -Wound care consultation placed recommendation followed -They will take care of the patient while -Changing dressing daily -She has already getting treatment for wound care *Change position every 2 hours *Continue home medication *Anticipated discharge *DVT GI prophylaxis *Healthy diet *Full code Problem List: 1. Colostomy 2. Spina bifida 3. UROSTOMY 4. Acute on chronic kidney failure 5. Decubital ulcer Pain Ratin Pain Location: No pain Pain Goal: Remain pain free Pain Plan: Pain management pathway Tomorrow's Labs & Rationales: No labs
[2018-03-21 15:45] VITALS: BP 110/65
--- NOTE | 2018-03-21 16:17 | INTERVENTIONAL RADIOLOGY RPT ---
TUNNELED DIALYSIS CATHETER REMOVAL INTERVENTIONAL RADIOLOGIST: Aaron Rivera M.D. ACCESS: Left chest wall. MEDICATIONS: none COMPLICATIONS: none CONTRAST: none INFORMED CONSENT: Informed consent was obtained from the patient just prior to the examination. Risks and benefits were explained. DESCRIPTION: The left chest wall was prepped and draped. The retention sutures on the patient's implanted AshSplit catheter were cut and removed. The cuff of the implanted catheter was subsequently freed from the ingrowth tissues using gentle traction. Subsequently, the catheter was removed in its entirety. A sterile dressing was applied to the catheter entry site. The patient tolerated the procedure well. IMPRESSION: Successful removal of implanted right sided tunneled central venous dialysis catheter.
[2018-03-21] MEDS ORDERED: NYSTATIN15 G1 TOP ×2 (16:37→17:24)
[2018-03-21] MEDS ORDERED: NYSTATIN100000 UNI PO (17:48)
--- NOTE | 2018-03-27 16:57 | Operative Report ---
Operative/Inv Procedure Report Surgery Date: 03/16/18 Name of Procedure: left ureteroscopy with stent insertion, fluoroscopy Pre-Operative Diagnosis: left hydronephrosis wih staghorn calculus, renal failure. atrophic right kidney Post-Operative Diagnosis: same Estimated Blood Loss: scant Surgeon/Airplane Captain: MD Nance Arnold-urology Anesthesia: moderate sedation Implants: 7 x 22 Bard Inlay stent Complications: none Operative Indication: ARF Operative/Procedure Note Note: The patient was taken to the operating room and placed on the OR table in supine position. After adequate anesthesia, and antibiotics, the patient's urostomy bag was removed, and she was draped and prepped in the usual surgical fashion. A flexible ureteroscope was inserted into the urostomy site, and advanced under direct visualization into the left ureter, and into the left renal pelvis where a large stone was visualized. The ureteroscope was then guided along the staghorn calculus, into the left upper pole of the kidney. A 0.035 Glidewire was then inserted through the ureteroscope, which was then placed in the upper pole of the left kidney. The flexible ureteroscope was then gently extracted, leaving the Glidewire in proper place, with fluoroscopic visualization. A 7 [place] by 22 Bard onlay stent was then railroaded over the wire. The stent was then advanced under fluoroscopic visualization, again following the wire, into the left upper pole of the kidney. With this stents proximal coil in in the left renal upper pole, the Glidewire was removed, and this stents proximal coil rested in the left upper pole of the kidney. The distal coil rested with in the distal ureter, so as not to be accidentally extracted with urostomy bag maintenance. A urostomy bag was then reapplied to the ostomy site. All sponge needle and instrument count were correct at the end of the case. The patient tolerated the procedure well, and taken to the recovery room in satisfactory condition. Discharge Disposition: PACU CC: Alec Nance MD
== END 2018-03-21 18:20 | DRG 682 ==
LOC: ERH 17:19 → ERHI 19:02 → 2NA 19:02 → EDBEDREQ 20:17 → ENRESERV 21:12 → ENTRNSPT 21:55 → 2NA 22:12 → CMPTRNSPT 22:26 → 2NA 03-15 08:39 → ENTRNSPT 03-16 15:56 → CMPTRNSPT 03-16 16:41 → EDTRNSPT 03-16 16:41 → EDTRNSPTSTS 03-16 16:41 → 2NA 03-21 18:20
PROVIDERS: Internal Medicine; Internal Medicine Nephrology; Physician Assistant Medical; Preventive Medicine Addiction Medicine; Preventive Medicine Public Health & General Preventive Medicine
PROC: B514YZA Fluoroscopy of Left Jugular Veins using Other Contrast, Guidance (ICD-10-PCS; 2018-03-15)
PROC: 06H033Z Insertion of Infusion Device into Inferior Vena Cava, Percutaneous Approach (ICD-10-PCS; 2018-03-15)
PROC: 0T777DZ Dilation of Left Ureter with Intraluminal Device, Via Natural or Artificial Opening (ICD-10-PCS; principal; 2018-03-16)
PROC: 05HN33Z Insertion of Infusion Device into Left Internal Jugular Vein, Percutaneous Approach (ICD-10-PCS; 2018-03-21)
PROC: 05PY33Z Removal of Infusion Device from Upper Vein, Percutaneous Approach (ICD-10-PCS; 2018-03-21)
DX: N17.9 Acute kidney failure, unspecified (principal); L89.44 Pressure ulcer of contiguous site of back, buttock and hip, stage 4; E87.2 Acidosis; E87.1 Hypo-osmolality and hyponatremia; R11.0 Nausea; Q05.9 Spina bifida, unspecified; Z93.2 Ileostomy status; Z93.3 Colostomy status; N25.81 Secondary hyperparathyroidism of renal origin; E87.6 Hypokalemia; Z89.511 Acquired absence of right leg below knee; N20.0 Calculus of kidney; Z87.442 Personal history of urinary calculi; E83.42 Hypomagnesemia; E83.39 Other disorders of phosphorus metabolism; R19.7 Diarrhea, unspecified; L89.319 Pressure ulcer of right buttock, unspecified stage; N18.5 Chronic kidney disease, stage 5; N26.1 Atrophy of kidney (terminal); Z91.040 Latex allergy status; K76.0 Fatty (change of) liver, not elsewhere classified; E86.0 Dehydration
CPT/HCPCS: 04007; 2NAP; 84133; 84300; 36415; 71045; 74176; 76000; 77001; 81001; 81025; 82436; 82570; 87086; 93005; 93010; 96374; 99291; C1752; C1769; C2617; J0696; J1644; J2001; J3370; J3490; J7040; J7060